=== PATIENT | female | born 1970 | race Two or more races ===

== ENCOUNTER 2016-10-17 04:27 | Emergency (ER) | payer MEDICAID ==
[2016-10-17 04:41] VITALS: BP 107/73
[2016-10-17] MEDS ORDERED: Albuterol/Ipratropium 3.0-0.5 MG/3 ML Neb Soln NEB ONE (04:57)
--- NOTE | 2016-10-17 05:03 | EDM.PDOC ---
ED HPI GENERAL MEDICAL PROBLEM - General Chief Complaint: Respiratory Problem Stated Complaint: COUGH CONGESTION Time Seen by Provider: 10/17/16 04:50 Source of Information: Reports: Patient History Limitations: Reports: No Limitations - History of Present Illness INITIAL COMMENTS - FREE TEXT/NARRATIVE: The patient presents with cough, congestion, fever, chills, sore throat, runny nose, and wheezing. She has a history of asthma. She has been using her inhaler's more often. She has some tightness in her chest and shortness of breath. She is coughing up some sputum at times. She does smoke. Onset: Gradual Duration: Week(s): (1) Location: Reports: Chest Quality: Reports: Other (Tightness) Improves with: Reports: None Worsens with: Reports: None Associated Symptoms: Reports: Chest Pain, Cough, cough w sputum, Fever/Chills, Shortness of Breath. Denies: Nausea/Vomiting Headache Pain Score (Numeric/FACES): 8 - Related Data Allergies Allergy/AdvReac Type Severity Reaction Status Date / Time Penicillins Allergy Severe Swelling Verified 10/17/16 04:36 grass pollen Allergy Cannot Verified 10/17/16 04:36 Remember latex Allergy Itching Verified 10/17/16 04:36 tree and shrub pollen Allergy Cannot Verified 10/17/16 04:36 Remember Home Meds: Home Meds Fluticasone/Salmeterol [Advair HFA 230-21 MCG] 2 puff INH Q12H 11/09/14 [History ] Omeprazole 40 mg PO DAILY 11/09/14 [History] Lisinopril 2.5 mg PO DAILY #90 tablet 05/21/15 [Rx] Metoprolol Tartrate [Lopressor] 25 mg PO BID #180 tablet 05/21/15 [Rx] Pyridoxine HCl [Vitamin B-6] 200 mg PO DAILY 01/18/16 [History] Ascorbic Acid [Vitamin C] 1 tab PO DAILY 05/07/16 [History] B&C/FA/Zinc/Copper Oxide/Vit E [Stress B-Complex Tablet] 1 tab PO DAILY [History] Metoclopramide [Reglan] 5 mg PO QIDACANDBED 05/07/16 [History] Resver/Wine/Bfl/Grpsd/Pc/C/Pom [Red Wine Extract] 1 cap PO DAILY 05/07/16 [ History] Simvastatin [Simvastatin] 80 mg PO BEDTIME 05/07/16 [History] traMADol HCl [Tramadol HCl] 1 tab PO Q4HR PRN 05/07/16 [History] Albuterol [IJD: Ventolin HFA] 2 puff INH ASDIRECTED PRN 10/17/16 [History] Azithromycin [IJD: Azithromycin] 250 mg PO DAILY #6 tab 10/17/16 [Rx] Codeine/Promethazine [Phenergan with Codeine] 5 - 10 ml PO Q4H PRN 10/17/16 [ History] Codeine/Promethazine [Phenergan with Codeine] 5 - 10 ml PO Q6HR PRN #300 ml [Rx] Multivitamin [Multivitamins] 1 tab PO DAILY 10/17/16 [History] Prednisone [IJD: predniSONE] 40 mg PO WITHBREAKFAST #10 tab 10/17/16 [Rx] Past Medical History HEENT History: Reports: Allergic Rhinitis, Sinusitis, Other (See Below) Other HEENT History: eustachian tube dysfunction Cardiovascular History: Reports: Heart Failure, High Cholesterol, Hypertension, [place], Pacemaker, Other (See Below) Other Cardiovascular History: Double bypass Respiratory History: Reports: Asthma Gastrointestinal History: Reports: Hemorrhoids Other Gastrointestinal History: RECTAL BLEEDING from hemorrhoids Genitourinary History: Reports: Other (See Below) Other Genitourinary History: hematuria, labial cyst, vaginal cyst, dysuria, trichamoniasis [employer] History: Reports: Other OB/BYN History: HX OF X4, 2 VAGINAL BIRTHS, 2 MISSED SAB Musculoskeletal History: Reports: Fracture Other Musculoskeletal History: bilateral achilles tendon contracture, bilateral carpal tunnel, fibrosis of subtabular joint, R ankle sprain, cervix stenosis, R trapezius muscle, body aches, R distal radius fracture, R epicondylitis, rhabdomylosis Neurological History: Reports: Other (See Below) Other Neuro History: dizziness, fatigue Psychiatric History: Reports: Depression Endocrine/Metabolic History: Reports: Obesity/BMI 30+ Hematologic History: Reports: Blood Transfusion(s) Oncologic (Cancer) History: Reports: Cervix - Infectious Disease History Infectious Disease History: Reports: Chicken Pox - Past Surgical History HEENT Surgical History: Reports: Other (See Below) Cardiovascular Surgical History: Reports: Coronary Artery Bypass, Pacer Social & Family History - Family History HEENT: Reports: Cataract Cardiac: Reports: [place] Respiratory: Reports: Asthma : Reports: Renal Calculus OBGYN: Reports: , Other (See Below) Other OBGYN Family History: miscarriages Musculoskeletal: Reports: Back pain, Chronic Neurological: Reports: Migraines, Seizure Psychiatric: Reports: Anxiety, Depression, Schizophrenia Endocrine/Metabolic: Reports: Diabetes, Type I, Diabetes, type II, Other (See Below) Other Endocrine/Metabolic Family History: thyroid issues but unsure of what type Oncologic: Reports: Colon - Tobacco Use Smoking Status *Q: Current Every Day Smoker Years of Tobacco use: 30 Packs/Tins Daily: 0.3 Used Tobacco, but Quit: Yes Month Tobacco Last Used: December 2015 Second Hand Smoke Exposure: Yes - Alcohol Use Days Per Week of Alcohol Use: 0 Number of Drinks Per Day: 0 Total Drinks Per Week: 0 - Recreational Drug Use Recreational Drug Use: No Drug Use in Last 12 Months: No - Living Situation & Occupation Living situation: Reports: Single, Alone Occupation: Employed ED ROS GENERAL - Review of Systems Review Of Systems: See Below Constitutional: Reports: Fever, Chills HEENT: Reports: No Symptoms Respiratory: Reports: Shortness of Breath, Wheezing, Cough, Sputum Cardiovascular: Reports: Chest Pain Endocrine: Reports: No Symptoms GI/Abdominal: Reports: No Symptoms : Reports: No Symptoms Musculoskeletal: Reports: No Symptoms Skin: Reports: No Symptoms ED EXAM, GENERAL - Physical Exam Exam: See Below Exam Limited By: No Limitations General Appearance: Alert, No Apparent Distress Ears: Normal External Exam Nose: Normal Inspection Throat/Mouth: Normal Inspection Head: Atraumatic, Normocephalic Neck: Normal Inspection Respiratory/Chest: No Respiratory Distress, Wheezing (Moderate) Cardiovascular: Regular Rate, Rhythm, No Edema, No Murmur GI/Abdominal: Soft, Non-Tender, No Organomegaly, No Mass Back Exam: Normal Inspection Extremities: Normal Inspection Neurological: Alert, Oriented, No Motor/Sensory Deficits Course - Vital Signs Last Recorded V/S: Last Vital Signs Temp 97.8 F 10/17/16 04:40 Pulse 76 10/17/16 05:07 Resp 18 10/17/16 04:40 BP 107/73 10/17/16 04:40 Pulse Ox 93 L 10/17/16 04:40 - Orders/Labs/Meds Orders: Active Orders 24 hr Category Date Time Status RT Aerosol Therapy [RC] ASDIRECTED Care 10/17/16 04:57 Active CXR [Chest 2V] [CR] Stat Exams 10/17/16 04:58 Taken Meds: Medications Discontinued Medications Generic Name Dose Route Start Last Admin Trade Name Freq PRN Reason Stop Dose Admin Albuterol/Ipratropium 3 ml 10/17/16 04:57 10/17/16 05:06 Duoneb 3.0-0.5 Mg/3 Ml NEB 10/17/16 04:58 3 ml ONETIME ONE Administration - Re-Assessments/Exams Free Text/Narrative Re-Assessment/Exam: 10/17/16 05:03 I ordered a duo neb and a CXR. 10/17/16 05:38 Her CXR does not show any pneumonia. She has some bronchitis. I will her her on some zithromax and some prednisone for the breathing. She has some inhalers at home. Departure - Departure Time of Disposition: 05:40 Disposition: Home, Self-Care 01 Condition: good Clinical Impression: Acute bronchitis Qualifiers: Bronchitis organism: unspecified organism Qualified Code(s): J20.9 - Acute bronchitis, unspecified Acute asthma exacerbation Qualifiers: Asthma severity: mild intermittent Qualified Code(s): J45.21 - Mild intermittent asthma with (acute) exacerbation - Discharge Information Prescriptions: Codeine/Promethazine [Phenergan with Codeine] 5 - 10 ml PO Q6HR PRN #300 ml PRN Reason: Cough Azithromycin [IJD: Azithromycin] 250 mg PO DAILY #6 tab Prednisone [IJD: predniSONE] 40 mg PO WITHBREAKFAST #10 tab Referrals: Gladis García PA-C [Primary Care Provider] - Forms: ED Department Discharge, Return to Work/School Form Additional Instructions: Take the medication as prescribed and use your inhaler 2 puffs every 4 to 6 hours as needed for wheezing and shortness of breath. Please return if you are worse. - My Orders Last 24 Hours: My Active Orders 10/17/16 04:57 RT Aerosol Therapy [RC] ASDIRECTED 10/17/16 04:58 CXR [Chest 2V] [CR] Stat - Assessment/Plan Last 24 Hours: My Active Orders 10/17/16 04:57 RT Aerosol Therapy [RC] ASDIRECTED 10/17/16 04:58 CXR [Chest 2V] [CR] Stat
--- NOTE | 2016-10-17 11:28 | CR ---
Chest: Two views of the chest were obtained. Comparison: Previous chest x-ray of 05/03/16. Heart size and mediastinum are normal. Lungs are clear. AICD is noted. Sternotomy wires are seen for CABG. Impression: 1. Incidental findings. Nothing acute is identified on two-view chest x-ray. Diagnostic code #2
== END 2016-10-17 06:02 | disposition home or self-care (01) ==
LOC: JD.ED 04:27
DX: J45.21 Mild intermittent asthma with (acute) exacerbation (principal); E11.9 Type 2 diabetes mellitus without complications; I25.2 Old myocardial infarction; G89.29 Other chronic pain; F17.200 Nicotine dependence, unspecified, uncomplicated
CPT/HCPCS: 71020; 71020-26; 94664; 99284; 99284-25

== ENCOUNTER 2017-04-15 10:48 | Emergency (ER) | payer MEDICAID ==
[2017-04-15 10:57] VITALS: BP 106/68
[2017-04-15] MEDS ORDERED: Aspirin 81 MG Tab.Chew PO ONE (11:13)
[2017-04-15] MEDS ORDERED: Sodium Chloride 0.9% 10 ML Syringe FLUSH PRN (11:17)
--- NOTE | 2017-04-15 12:59 | EDM.PDOC ---
ED HPI GENERAL MEDICAL PROBLEM - General Chief Complaint: Chest Pain Stated Complaint: CHEST PAIN Time Seen by Provider: 04/15/17 10:57 Source of Information: Reports: Patient, RN Notes Reviewed - History of Present Illness INITIAL COMMENTS - FREE TEXT/NARRATIVE: 46 show female comes in experiencing intermittent chest pains for about the past 2 weeks. She describes these as sharp, shooting discomfort left lower chest which became somewhat more frequent and severe during the night and this morning. They're very brief lasting less than a minute. No discomfort at time of my exam. She has had some intermittent mild dizziness. No nausea vomiting. She does not feel short of breath. She does have history of coronary artery disease with history of bypass surgery 19 years ago. She does smoke but is trying to "cut back". She has been having some mild upper abdominal discomfort as well recently. No significant diarrhea. Left Chest Pain Score (Numeric/FACES): 8 - Related Data Allergies Allergy/AdvReac Type Severity Reaction Status Date / Time Penicillins Allergy Severe Swelling Verified 04/15/17 10:57 grass pollen Allergy Cannot Verified 04/15/17 10:57 Remember latex Allergy Itching Verified 04/15/17 10:57 tree and shrub pollen Allergy Cannot Verified 04/15/17 10:57 Remember Home Meds: Home Meds Lisinopril 2.5 mg PO DAILY #90 tablet 05/21/15 [Rx] Metoprolol Tartrate [Lopressor] 25 mg PO BID #180 tablet 05/21/15 [Rx] Simvastatin [Simvastatin] 40 mg PO BEDTIME 05/07/16 [History] Aspirin [Halfprin] 81 mg PO DAILY 04/15/17 [History] Hydrocodone/Acetaminophen [Hydrocodon-Acetaminophen 5-325] 1 each PO Q6H [History] Metoclopramide [Reglan] 5 mg PO QIDACANDBED 04/15/17 [History] Nabumetone 500 mg PO BID 04/15/17 [History] Oxybutynin [Oxybutynin ER] 5 mg PO DAILY 04/15/17 [History] Spironolactone [Aldactone] 12.5 mg PO DAILY 04/15/17 [History] Past Medical History HEENT History: Reports: Allergic Rhinitis, Sinusitis, Other (See Below) Other HEENT History: eustachian tube dysfunction Cardiovascular History: Reports: Heart Failure, High Cholesterol, Hypertension, [place], Pacemaker, Other (See Below) Other Cardiovascular History: Double bypass Respiratory History: Reports: Asthma Gastrointestinal History: Reports: Hemorrhoids Other Gastrointestinal History: RECTAL BLEEDING from hemorrhoids Genitourinary History: Reports: Other (See Below) Other Genitourinary History: hematuria, labial cyst, vaginal cyst, dysuria, trichamoniasis CHARRER History: Reports: Other OB/BYN History: HX OF X4, 2 VAGINAL BIRTHS, 2 MISSED SAB Musculoskeletal History: Reports: Fracture Other Musculoskeletal History: bilateral achilles tendon contracture, bilateral carpal tunnel, fibrosis of subtabular joint, R ankle sprain, cervix stenosis, R trapezius muscle, body aches, R distal radius fracture, R epicondylitis, rhabdomylosis Neurological History: Reports: Other (See Below) Other Neuro History: dizziness, fatigue Psychiatric History: Reports: Depression Endocrine/Metabolic History: Reports: Obesity/BMI 30+ Hematologic History: Reports: Blood Transfusion(s) Oncologic (Cancer) History: Reports: Cervix - Infectious Disease History Infectious Disease History: Reports: Chicken Pox - Past Surgical History HEENT Surgical History: Reports: Other (See Below) Cardiovascular Surgical History: Reports: Coronary Artery Bypass, Pacer Social & Family History - Family History HEENT: Reports: Cataract Cardiac: Reports: [place] Respiratory: Reports: Asthma : Reports: Renal Calculus OBGYN: Reports: , Other (See Below) Other OBGYN Family History: miscarriages Musculoskeletal: Reports: Back pain, Chronic Neurological: Reports: Migraines, Seizure Psychiatric: Reports: Anxiety, Depression, Schizophrenia Endocrine/Metabolic: Reports: Diabetes, Type I, Diabetes, type II, Other (See Below) Other Endocrine/Metabolic Family History: thyroid issues but unsure of what type Oncologic: Reports: Colon - Tobacco Use Smoking Status *Q: Current Every Day Smoker Years of Tobacco use: 30 Packs/Tins Daily: 0.5 Used Tobacco, but Quit: Yes Month Tobacco Last Used: December 2015 Second Hand Smoke Exposure: Yes - Alcohol Use Days Per Week of Alcohol Use: 0 Number of Drinks Per Day: 0 Total Drinks Per Week: 0 - Recreational Drug Use Recreational Drug Use: No Drug Use in Last 12 Months: No - Living Situation & Occupation Living situation: Reports: Single, Alone Occupation: Employed ED ROS GENERAL - Review of Systems Review Of Systems: See Below Constitutional: Reports: Diaphoresis (Very mild this morning, gone). Denies: Fever, Chills HEENT: Denies: Throat Pain, Vision Change Respiratory: Denies: Shortness of Breath, Wheezing, Pleuritic Chest Pain Cardiovascular: Reports: Chest Pain (Gone), Lightheadedness (Occasional). Denies: Syncope GI/Abdominal: Reports: Abdominal Pain (Upper abdominal for the past week or so, intermittent), Nausea (Occasional). Denies: Diarrhea, Vomiting Musculoskeletal: Denies: Neck Pain, Shoulder Pain, Arm Pain Skin: Reports: No Symptoms Neurological: Denies: Numbness, Tingling, Trouble Speaking, Difficulty Walking, Weakness ED EXAM, GENERAL - Physical Exam Exam: See Below General Appearance: Alert, No Apparent Distress Eye Exam: Bilateral Eye: PERRL Throat/Mouth: Normal Inspection, Normal Oropharynx Head: No: Facial Swelling Neck: Supple, Full Range of Motion Respiratory/Chest: No Respiratory Distress, Lungs Clear, Normal Breath Sounds. No: Rales, Rhonchi Cardiovascular: Regular Rate, Rhythm GI/Abdominal: Soft, Tender. No: Guarding, Rebound (Mild tenderness upper mid abdomen) Back Exam: No: CVA Tenderness (L), CVA Tenderness (R) Extremities: Normal Inspection. No: Pedal Edema, Leg Pain Neurological: Alert, Oriented, No Motor/Sensory Deficits Skin Exam: Warm, Dry, Normal Color EKG INTERPRETATION EKG Date: 04/15/17 Rhythm: NSR [place]: Normal P-Wave: Present QRS: Normal ST-T: Other (There is T-wave inversion anteriorly and aVL) Course - Vital Signs Last Recorded V/S: Last Vital Signs Temp 96.9 F 04/15/17 10:50 Pulse 83 04/15/17 10:50 Resp 16 04/15/17 10:50 BP 106/68 04/15/17 10:50 Pulse Ox 97 04/15/17 10:50 - Orders/Labs/Meds Orders: Active Orders 24 hr Category Date Time Status EKG Documentation Completion [RC] ASDIRECTED Care 04/15/17 11:14 Active Peripheral IV Care [RC] . DIRECTED Care 04/15/17 11:17 Active Chest 1V Frontal [CR] Stat Exams 04/15/17 12:51 Taken Sodium Chloride 0.9% [Saline Flush] Med 04/15/17 11:17 Active 10 ml FLUSH ASDIRECTED PRN Peripheral IV Insertion Adult [OM.PC] Stat Oth 04/15/17 11:17 Ordered EKG 12 Lead [EK] Stat Ther 04/15/17 11:14 Ordered Medication Orders Sodium Chloride (Saline Flush) 10 ml FLUSH ASDIRECTED PRN PRN Reason: Keep Vein Open Last Admin: 04/15/17 11:42 Dose: 10 ml Labs: Laboratory Tests 04/15/17 04/15/17 04/15/17 Range/Units 11:10 11:10 11:10 WBC 9.52 (3.98-10.04) K/mm3 RBC 4.96 (3.98-5.22) M/mm3 Hgb 15.3 (11.2-15.7) gm/L Hct 44.9 (34.1-44.9) % MCV 90.5 (79.4-94.8) fl MCH 30.8 (25.6-32.2) pg MCHC 34.1 (32.2-35.5) g/dl RDW Std Deviation 45.2 (36.4-46.3) fL Plt Count 307 (182-369) K/mm3 MPV 8.5 L (9.4-12.3) fl Neut % (Auto) 65.9 (34.0-71.1) % Lymph % (Auto) 24.7 (19.3-51.7) % [place] % (Auto) 8.3 (4.7-12.5) % Eos % (Auto) 0.6 L (0.7-5.8) Baso % (Auto) 0.4 (0.1-1.2) % Neut # (Auto) 6.27 H (1.56-6.13) K/mm3 Lymph # (Auto) 2.35 (1.18-3.74) K/mm3 [place] # (Auto) 0.79 H (0.24-0.36) K/mm3 Eos # (Auto) 0.06 (0.04-0.36) K/mm3 Baso # (Auto) 0.04 (0.01-0.08) K/mm3 APTT 27 (22-36) SECONDS D-Dimer, Quantitative 0.61 H (0.19-0.59) mg/L Sodium 140 (136-145) mEq/L Potassium 3.5 (3.5-5.1) mEq/L Chloride 104 (98-107) mEq/L Carbon Dioxide 24 (21-32) mEq/L Anion Gap 15.5 H (5-15) BUN 10 (7-18) mg/dL Creatinine 0.7 (0.55-1.02) mg/dL Est Cr Clr Drug Dosing 72.13 mL/min Estimated GFR (MDRD) > 60 (>60) mL/min BUN/Creatinine Ratio 14.3 (14-18) Glucose 93 (74-106) mg/dL Calcium 8.8 (8.5-10.1) mg/dL Total Bilirubin 0.3 (0.2-1.0) mg/dL AST 12 L (15-37) U/L ALT 20 (14-59) U/L Alkaline Phosphatase 65 (46-116) U/L Troponin I 0.019 (0.00-0.056) ng/mL Total Protein 7.2 (6.4-8.2) g/dl Albumin 3.5 (3.4-5.0) g/dl Globulin 3.7 gm/dL Albumin/Globulin Ratio 1.0 (1-2) 04/15/17 Range/Units 13:30 WBC (3.98-10.04) K/mm3 RBC (3.98-5.22) M/mm3 Hgb (11.2-15.7) gm/L Hct (34.1-44.9) % MCV (79.4-94.8) fl MCH (25.6-32.2) pg MCHC (32.2-35.5) g/dl RDW Std Deviation (36.4-46.3) fL Plt Count (182-369) K/mm3 MPV (9.4-12.3) fl Neut % (Auto) (34.0-71.1) % Lymph % (Auto) (19.3-51.7) % [place] % (Auto) (4.7-12.5) % Eos % (Auto) (0.7-5.8) Baso % (Auto) (0.1-1.2) % Neut # (Auto) (1.56-6.13) K/mm3 Lymph # (Auto) (1.18-3.74) K/mm3 [place] # (Auto) (0.24-0.36) K/mm3 Eos # (Auto) (0.04-0.36) K/mm3 Baso # (Auto) (0.01-0.08) K/mm3 APTT (22-36) SECONDS D-Dimer, Quantitative (0.19-0.59) mg/L Sodium (136-145) mEq/L Potassium (3.5-5.1) mEq/L Chloride (98-107) mEq/L Carbon Dioxide (21-32) mEq/L Anion Gap (5-15) BUN (7-18) mg/dL Creatinine (0.55-1.02) mg/dL Est Cr Clr Drug Dosing mL/min Estimated GFR (MDRD) (>60) mL/min BUN/Creatinine Ratio (14-18) Glucose (74-106) mg/dL Calcium (8.5-10.1) mg/dL Total Bilirubin (0.2-1.0) mg/dL AST (15-37) U/L ALT (14-59) U/L Alkaline Phosphatase (46-116) U/L Troponin I < 0.017 (0.00-0.056) ng/mL Total Protein (6.4-8.2) g/dl Albumin (3.4-5.0) g/dl Globulin gm/dL Albumin/Globulin Ratio (1-2) Meds: Medications Generic Name Dose Route Start Last Admin Trade Name Freq PRN Reason Stop Dose Admin Sodium Chloride 10 ml 04/15/17 11:17 04/15/17 11:42 Saline Flush FLUSH 10 ml ASDIRECTED PRN Administration Keep Vein Open Discontinued Medications Generic Name Dose Route Start Last Admin Trade Name Freq PRN Reason Stop Dose Admin Aspirin 324 mg 04/15/17 11:13 04/15/17 11:17 Aspirin PO 04/15/17 11:14 324 mg ONETIME ONE Administration - Re-Assessments/Exams Free Text/Narrative Re-Assessment/Exam: 04/15/17 14:46. Initial troponins came back at 0.019. 2-1/2 hour to 3 hour troponin came back at 0.017. Other labs all relatively normal. Chest x-ray looked good. She's been resting comfortably pain-free, no ectopy. She does have an appointment at the clinic to see a [employer] Helper tomorrow. Discharge instructions as documented Departure - Departure Time of Disposition: 14:44 Disposition: Home, Self-Care 01 Condition: Fair Clinical Impression: Atypical chest pain Referrals: PCP,None [Primary Care Provider] - Forms: ED Department Discharge Additional Instructions: Rest, take aspirin daily and take other medications as previously prescribed, see [employer] Up Helper at [facility] tomorrow as planned, return to ED if symptoms worsening in any way. - My Orders Last 24 Hours: My Active Orders 04/15/17 11:14 EKG Documentation Completion [RC] ASDIRECTED EKG 12 Lead [EK] Stat 04/15/17 11:17 Peripheral IV Care [RC] . DIRECTED Sodium Chloride 0.9% [Saline Flush] 10 ml FLUSH ASDIRECTED PRN Peripheral IV Insertion Adult [OM.PC] Stat 04/15/17 12:51 Chest 1V Frontal [CR] Stat - Assessment/Plan Last 24 Hours: My Active Orders 04/15/17 11:14 EKG Documentation Completion [RC] ASDIRECTED EKG 12 Lead [EK] Stat 04/15/17 11:17 Peripheral IV Care [RC] . DIRECTED Sodium Chloride 0.9% [Saline Flush] 10 ml FLUSH ASDIRECTED PRN Peripheral IV Insertion Adult [OM.PC] Stat 04/15/17 12:51 Chest 1V Frontal [CR] Stat
--- NOTE | 2017-04-16 11:00 | CR ---
Chest: Portable view of the chest was obtained. Comparison: Prior chest x-ray of 10/17/16. Heart size and mediastinum are within normal limits. Sternotomy is noted for prior CABG. AICD is present. Lungs are clear. Bony structures are grossly intact. Impression: 1. Incidental findings. Nothing acute is identified on portable chest x-ray. Diagnostic code #2
== END 2017-04-15 14:57 | disposition home or self-care (01) ==
LOC: JD.ED 10:48
DX: R07.89 Other chest pain (principal); I11.0 Hypertensive heart disease with heart failure; I50.9 Heart failure, unspecified; F17.210 Nicotine dependence, cigarettes, uncomplicated; Z88.0 Allergy status to penicillin; Z91.040 Latex allergy status; Z79.899 Other long term (current) drug therapy; Z79.82 Long term (current) use of aspirin
CPT/HCPCS: 36415; 71010; 80053; 84484; 85025; 85379; 85730; 93005; 99285; A9270; J7050; 93010

== ENCOUNTER 2017-07-23 12:50 | Emergency (ER) | payer MEDICAID ==
[2017-07-23 13:02] VITALS: BP 124/80
--- NOTE | 2017-07-23 13:06 | EDM.PDOC ---
ED HPI GENERAL MEDICAL PROBLEM - General Chief Complaint: Respiratory Problem Stated Complaint: COUGH/TROUBLE BREATHING Time Seen by Provider: 07/23/17 13:01 Source of Information: Reports: Patient History Limitations: Reports: No Limitations - History of Present Illness INITIAL COMMENTS - FREE TEXT/NARRATIVE: The patient presents with productive cough, shortness of breath and chest tightness. This has been going on for about 2 weeks and it has gotten worse over the past couple of days. She smokes daily. She has a history of asthma. She has chills and a fever. She has some lower abdominal pain from the coughing. She also has some increase frequency with urination and she says her urine is orange. Onset: Gradual Duration: Week(s): (2) Location: Reports: Chest, Abdomen Quality: Reports: Other (Tightness) Severity: Mild Improves with: Reports: None Worsens with: Reports: Other (Coughing) Associated Symptoms: Reports: Chest Pain, Cough, Shortness of Breath. Denies: Nausea/Vomiting back and chest area Pain Score (Numeric/FACES): 5 - Related Data Allergies Allergy/AdvReac Type Severity Reaction Status Date / Time Penicillins Allergy Severe Swelling Verified 07/23/17 13:02 grass pollen Allergy Cannot Verified 07/23/17 13:02 Remember latex Allergy Itching Verified 07/23/17 13:02 tree and shrub pollen Allergy Cannot Verified 07/23/17 13:02 Remember Home Meds: Home Meds Lisinopril 2.5 mg PO DAILY #90 tablet 05/21/15 [Rx] Metoprolol Tartrate [Lopressor] 25 mg PO BID #180 tablet 05/21/15 [Rx] Simvastatin [Simvastatin] 40 mg PO BEDTIME 05/07/16 [History] Aspirin [Halfprin] 81 mg PO DAILY 04/15/17 [History] Metoclopramide [Reglan] 5 mg PO QIDACANDBED 04/15/17 [History] Nabumetone 500 mg PO BID 04/15/17 [History] Oxybutynin [Oxybutynin ER] 5 mg PO DAILY 04/15/17 [History] Spironolactone [Aldactone] 12.5 mg PO DAILY 04/15/17 [History] Albuterol Sulfate [Ventolin Hfa] 18 gm IH BID 07/23/17 [History] Albuterol [Proventil HFA] 2 puff INH Q4H PRN #1 inhaler 07/23/17 [Rx] Azithromycin [IJD: Azithromycin] 250 mg PO DAILY #6 tab 07/23/17 [Rx] Codeine/Promethazine [Phenergan with Codeine] 1 dose PO ASDIRECTED PRN 07/23/17 [History] Codeine/Promethazine [Phenergan with Codeine] 5 - 10 ml PO Q6HR PRN #240 ml [Rx] Multivitamin [Multivitamins] 1 each PO DAILY 07/23/17 [History] Past Medical History HEENT History: Reports: Allergic Rhinitis, Sinusitis, Other (See Below) Other HEENT History: eustachian tube dysfunction Cardiovascular History: Reports: Heart Failure, High Cholesterol, Hypertension, [place], Pacemaker, Other (See Below) Other Cardiovascular History: Double bypass Respiratory History: Reports: Asthma Gastrointestinal History: Reports: Hemorrhoids Other Gastrointestinal History: RECTAL BLEEDING from hemorrhoids Genitourinary History: Reports: Other (See Below) Other Genitourinary History: hematuria, labial cyst, vaginal cyst, dysuria, trichamoniasis CARDIAC NURSE History: Reports: Other OB/BYN History: HX OF X4, 2 VAGINAL BIRTHS, 2 MISSED SAB Musculoskeletal History: Reports: Fracture Other Musculoskeletal History: bilateral achilles tendon contracture, bilateral carpal tunnel, fibrosis of subtabular joint, R ankle sprain, cervix stenosis, R trapezius muscle, body aches, R distal radius fracture, R epicondylitis, rhabdomylosis Neurological History: Reports: Other (See Below) Other Neuro History: dizziness, fatigue Psychiatric History: Reports: Depression Endocrine/Metabolic History: Reports: Obesity/BMI 30+ Hematologic History: Reports: Blood Transfusion(s) Oncologic (Cancer) History: Reports: Cervix - Infectious Disease History Infectious Disease History: Reports: Chicken Pox - Past Surgical History HEENT Surgical History: Reports: Other (See Below) Cardiovascular Surgical History: Reports: Coronary Artery Bypass, Pacer Social & Family History - Family History HEENT: Reports: Cataract Cardiac: Reports: [place] Respiratory: Reports: Asthma : Reports: Renal Calculus OBGYN: Reports: , Other (See Below) Other OBGYN Family History: miscarriages Musculoskeletal: Reports: Back pain, Chronic Neurological: Reports: Migraines, Seizure Psychiatric: Reports: Anxiety, Depression, Schizophrenia Endocrine/Metabolic: Reports: Diabetes, Type I, Diabetes, type II, Other (See Below) Other Endocrine/Metabolic Family History: thyroid issues but unsure of what type Oncologic: Reports: Colon - Tobacco Use Smoking Status *Q: Current Every Day Smoker Years of Tobacco use: 30 Packs/Tins Daily: 0.5 Used Tobacco, but Quit: Yes Month Tobacco Last Used: December 2015 Second Hand Smoke Exposure: Yes - Alcohol Use Days Per Week of Alcohol Use: 0 Number of Drinks Per Day: 0 Total Drinks Per Week: 0 - Recreational Drug Use Recreational Drug Use: No Drug Use in Last 12 Months: No - Living Situation & Occupation Living situation: Reports: Single, Alone Occupation: Employed ED ROS GENERAL - Review of Systems Review Of Systems: See Below Constitutional: Reports: Fever, Chills HEENT: Reports: No Symptoms Respiratory: Reports: Shortness of Breath, Cough Cardiovascular: Reports: Chest Pain Endocrine: Reports: No Symptoms GI/Abdominal: Reports: No Symptoms : Reports: No Symptoms Musculoskeletal: Reports: No Symptoms Skin: Reports: No Symptoms ED EXAM, GENERAL - Physical Exam Exam: See Below Exam Limited By: No Limitations General Appearance: Alert, No Apparent Distress Ears: Normal External Exam Nose: Normal Inspection Throat/Mouth: Normal Inspection Head: Atraumatic, Normocephalic Neck: Normal Inspection Respiratory/Chest: No Respiratory Distress, Wheezing Cardiovascular: Regular Rate, Rhythm, No Edema, No Murmur GI/Abdominal: Soft, Non-Tender, No Organomegaly, No Mass Back Exam: Normal Inspection Extremities: Normal Inspection Course - Vital Signs Last Recorded V/S: Last Vital Signs Temp 97.1 F 07/23/17 12:58 Pulse 84 07/23/17 12:58 Resp 18 07/23/17 12:58 BP 124/80 07/23/17 12:58 Pulse Ox 98 07/23/17 13:34 - Orders/Labs/Meds Orders: Active Orders 24 hr Category Date Time Status Cardiac Monitoring [RC] . DIRECTED Care 07/23/17 13:15 Active EKG Documentation Completion [RC] STAT Care 07/23/17 13:16 Active Oxygen Therapy [RC] PRN Care 07/23/17 13:15 Active Peripheral IV Care [RC] . DIRECTED Care 07/23/17 13:16 Active RT Aerosol Therapy [RC] ASDIRECTED Care 07/23/17 13:18 Active Chest 1V Frontal [CR] Stat Exams 07/23/17 13:16 Taken INFLUENZA A+B AG SCREEN [RM] Stat Lab 07/23/17 13:17 Ordered UA W/MICROSCOPIC [URIN] Stat Lab 07/23/17 15:07 Ordered Sodium Chloride 0.9% [Saline Flush] Med 07/23/17 13:15 Active 10 ml FLUSH ASDIRECTED PRN Peripheral IV Insertion Adult [OM.PC] Stat Oth 07/23/17 13:15 Ordered Medication Orders Sodium Chloride (Saline Flush) 10 ml FLUSH ASDIRECTED PRN PRN Reason: Keep Vein Open Last Admin: 07/23/17 14:22 Dose: 10 ml Labs: Laboratory Tests 07/23/17 07/23/17 Range/Units 13:35 13:35 WBC 5.64 (3.98-10.04) K/mm3 RBC 4.79 (3.98-5.22) M/mm3 Hgb 14.8 (11.2-15.7) gm/L Hct 43.6 (34.1-44.9) % MCV 91.0 (79.4-94.8) fl MCH 30.9 (25.6-32.2) pg MCHC 33.9 (32.2-35.5) g/dl RDW Std Deviation 42.2 (36.4-46.3) fL Plt Count 271 (182-369) K/mm3 MPV 8.9 L (9.4-12.3) fl Neut % (Auto) 59.6 (34.0-71.1) % Lymph % (Auto) 20.7 (19.3-51.7) % [place] % (Auto) 16.7 H (4.7-12.5) % Eos % (Auto) 2.1 (0.7-5.8) Baso % (Auto) 0.7 (0.1-1.2) % Neut # (Auto) 3.36 (1.56-6.13) K/mm3 Lymph # (Auto) 1.17 L (1.18-3.74) K/mm3 [place] # (Auto) 0.94 H (0.24-0.36) K/mm3 Eos # (Auto) 0.12 (0.04-0.36) K/mm3 Baso # (Auto) 0.04 (0.01-0.08) K/mm3 Manual Slide Review Normal smear Sodium 139 (136-145) mEq/L Potassium 3.1 L (3.5-5.1) mEq/L Chloride 104 (98-107) mEq/L Carbon Dioxide 23 (21-32) mEq/L Anion Gap 15.1 H (5-15) BUN 6 L (7-18) mg/dL Creatinine 0.7 (0.55-1.02) mg/dL Est Cr Clr Drug Dosing 72.13 mL/min Estimated GFR (MDRD) > 60 (>60) mL/min BUN/Creatinine Ratio 8.6 L (14-18) Glucose 85 (74-106) mg/dL Calcium 8.8 (8.5-10.1) mg/dL Total Bilirubin 0.4 (0.2-1.0) mg/dL AST 19 (15-37) U/L ALT 24 (14-59) U/L Alkaline Phosphatase 68 (46-116) U/L Troponin I < 0.017 (0.00-0.056) ng/mL Total Protein 7.2 (6.4-8.2) g/dl Albumin 3.4 (3.4-5.0) g/dl Globulin 3.8 gm/dL Albumin/Globulin Ratio 0.9 L (1-2) Meds: Medications Generic Name Dose Route Start Last Admin Trade Name Freblaine PRN Reason Stop Dose Admin Sodium Chloride 10 ml 07/23/17 13:15 07/23/17 14:22 Saline Flush FLUSH 10 ml ASDIRECTED PRN Administration Keep Vein Open Discontinued Medications Generic Name Dose Route Start Last Admin Trade Name Freq PRN Reason Stop Dose Admin Albuterol/Ipratropium 3 ml 07/23/17 13:18 07/23/17 13:34 Duoneb 3.0-0.5 Mg/3 Ml NEB 07/23/17 13:19 3 ml ONETIME ONE Administration Methylprednisolone Sodium Succinate 125 mg 07/23/17 13:19 07/23/17 14:21 Solu-Medrol IVPUSH 07/23/17 13:20 125 mg ONETIME ONE Administration - Re-Assessments/Exams Free Text/Narrative Re-Assessment/Exam: 07/23/17 15:45 I ordered an IV saline lock, labs, CXR, duoneb and solu-medrol 125mg IV. She sounds better after the treatment. 07/23/17 15:46 Her CXR does not show an infiltrate. Her CBC looks good. Her K was low at 3.1. Her troponin was negative. Her EKG shows a NSR with no acute changes. She has bronchitis. I will get her on some zithromax, albuterol, and phenergan with codeine. Departure - Departure Time of Disposition: 15:50 Disposition: Home, Self-Care 01 Condition: Good Clinical Impression: Bronchitis - Discharge Information Prescriptions: Codeine/Promethazine [Phenergan with Codeine] 5 - 10 ml PO Q6HR PRN #240 ml PRN Reason: Cough Albuterol [Proventil HFA] 2 puff INH Q4H PRN #1 inhaler PRN Reason: Shortness Of Breath Azithromycin [IJD: Azithromycin] 250 mg PO DAILY #6 tab Referrals: Bryson Traore MD [Primary Care Provider] - 1 Week Forms: ED Department Discharge Additional Instructions: Take your medication as prescribed. Try to stop smoking. Drink plenty of fluids. Please return if you are worse. - My Orders Last 24 Hours: My Active Orders 07/23/17 13:15 Cardiac Monitoring [RC] . DIRECTED Oxygen Therapy [RC] PRN Sodium Chloride 0.9% [Saline Flush] 10 ml FLUSH ASDIRECTED PRN Peripheral IV Insertion Adult [OM.PC] Stat 07/23/17 13:16 EKG Documentation Completion [RC] STAT Peripheral IV Care [RC] . DIRECTED Chest 1V Frontal [CR] Stat 07/23/17 13:17 INFLUENZA A+B AG SCREEN [RM] Stat 07/23/17 13:18 RT Aerosol Therapy [RC] ASDIRECTED 07/23/17 15:07 UA W/MICROSCOPIC [URIN] Stat - Assessment/Plan Last 24 Hours: My Active Orders 07/23/17 13:15 Cardiac Monitoring [RC] . DIRECTED Oxygen Therapy [RC] PRN Sodium Chloride 0.9% [Saline Flush] 10 ml FLUSH ASDIRECTED PRN Peripheral IV Insertion Adult [OM.PC] Stat 07/23/17 13:16 EKG Documentation Completion [RC] STAT Peripheral IV Care [RC] . DIRECTED Chest 1V Frontal [CR] Stat 07/23/17 13:17 INFLUENZA A+B AG SCREEN [RM] Stat 07/23/17 13:18 RT Aerosol Therapy [RC] ASDIRECTED 07/23/17 15:07 UA W/MICROSCOPIC [URIN] Stat
[2017-07-23] MEDS ORDERED: Sodium Chloride 0.9% 10 ML Syringe FLUSH PRN (13:15)
[2017-07-23] MEDS ORDERED: Albuterol/Ipratropium 3.0-0.5 MG/3 ML Neb Soln NEB ONE (13:18)
[2017-07-23] MEDS ORDERED: methylPREDNISolone Sodium Succinate 125 MG/2 ML SDV IVPUSH ONE (13:19)
--- NOTE | 2017-07-24 08:49 | CR ---
Chest: Portable view of the chest was obtained. Comparison: Prior chest x-ray of 04/15/17. Heart size and mediastinum are normal. Lungs are clear. AICD is noted. Previous sternotomy is noted. Bony structures are grossly intact. Impression: 1. Nothing acute is appreciated on portable chest x-ray. Diagnostic code #2
== END 2017-07-23 16:05 | disposition home or self-care (01) ==
LOC: JD.ED 12:50
DX: J40 Bronchitis, not specified as acute or chronic (principal); I11.0 Hypertensive heart disease with heart failure; I50.9 Heart failure, unspecified; I25.2 Old myocardial infarction; E78.00 Pure hypercholesterolemia, unspecified; J45.909 Unspecified asthma, uncomplicated; E66.9 Obesity, unspecified; F17.210 Nicotine dependence, cigarettes, uncomplicated; Z88.0 Allergy status to penicillin; Z91.048 Other nonmedicinal substance allergy status; Z91.040 Latex allergy status; Z79.899 Other long term (current) drug therapy; Z79.82 Long term (current) use of aspirin
CPT/HCPCS: 36415; 71045; 80053; 84484; 85025; 93005; 94640; 96374; 99285; J2930; J7050; 99283

== ENCOUNTER 2018-01-26 15:54 | Emergency (ER) | payer OTHER ==
[2018-01-26 16:09] VITALS: BP 102/76
[2018-01-26] MEDS ORDERED: Ondansetron 4 MG/2 ML SDV IVPUSH ONE (16:52)
[2018-01-26] MEDS ORDERED: Sodium Chloride 0.9% 1,000 ML IV ONE (16:52)
[2018-01-26] MEDS ORDERED: Acetaminophen 325 MG Tab PO ONE (17:05)
--- NOTE | 2018-01-26 17:11 | EDM.PDOC ---
ED HPI GENERAL MEDICAL PROBLEM - General Chief Complaint: Abdominal Pain Stated Complaint: BACK PAIN/VOMITING Time Seen by Provider: 01/26/18 16:03 Source of Information: Reports: Patient History Limitations: Reports: No Limitations - History of Present Illness INITIAL COMMENTS - FREE TEXT/NARRATIVE: 47-year-old female with a reported past medical history of CABG and heart valve replacement presenting with a chief complaint nausea, dizziness and vomiting. The patient is a poor historian cannot recall exactly which are valve she's had replaced. She states that she had heart valve replacement and reportedly coronary artery bypass when she was 27 years old. She states this was due to stress from relationship with her first . More recently the patient has had nausea and vomiting for the past 3 months. There is no clear. Provoking factors. She has says it is associated with some intermittent dizziness as well. Patient however denies any associated chest pain. She last saw her primary care provider 3 months ago for some shortness of breath and was given a prescription for nebulized albuterol as well as metered-dose inhaler. More recently over the past few weeks patient has noticed some diffuse nonspecific abdominal pain which is crampy and intermittent. She states that she's been diagnosed with a kidney stone once in the past. Patient states she's been unable tolerate by mouth intake for the past day. She has no history of abdominal surgeries. Denies any diarrhea or constipation. Her emesis is nonbloody and nonbilious. Patient states she's had intermittent visual difficulties and sees floaters occasionally but again she can't identify any palliative or provoking factors and states that the episodes resolve within minutes. Yesterday while driving her son or if she had to stop several times throughout. Left Back Pain Score (Numeric/FACES): 8 - Related Data Allergies Allergy/AdvReac Type Severity Reaction Status Date / Time Penicillins Allergy Severe Swelling Verified 01/26/18 16:52 cat dander Allergy Shortness Verified 01/26/18 16:53 of Breath dog dander Allergy Shortness Verified 01/26/18 16:53 of Breath grass pollen Allergy Cannot Verified 01/26/18 16:52 Remember latex Allergy Itching Verified 01/26/18 16:52 tree and shrub pollen Allergy Cannot Verified 01/26/18 16:52 Remember Home Meds: Home Meds Lisinopril 2.5 mg PO DAILY #90 tablet 05/21/15 [Rx] Metoprolol Tartrate [Lopressor] 25 mg PO BID #180 tablet 05/21/15 [Rx] Simvastatin 40 mg PO BEDTIME 05/07/16 [History] Aspirin [Halfprin] 81 mg PO DAILY 04/15/17 [History] Metoclopramide [Reglan] 5 mg PO QIDACANDBED 04/15/17 [History] Nabumetone 500 mg PO BID 04/15/17 [History] Oxybutynin [Oxybutynin ER] 5 mg PO DAILY 04/15/17 [History] Spironolactone [Aldactone] 12.5 mg PO DAILY 04/15/17 [History] Meclizine [Antivert] 12.5 mg PO TID #15 tab 01/26/18 [Rx] Meclizine [Antivert] 12.5 mg PO TID #15 tab 01/26/18 [Rx] Past Medical History HEENT History: Reports: Allergic Rhinitis, Sinusitis, Other (See Below) Other HEENT History: eustachian tube dysfunction Cardiovascular History: Reports: Heart Failure, High Cholesterol, Hypertension, [place], Pacemaker, Other (See Below) Other Cardiovascular History: Double bypass Respiratory History: Reports: Asthma Gastrointestinal History: Reports: Hemorrhoids Other Gastrointestinal History: RECTAL BLEEDING from hemorrhoids Genitourinary History: Reports: Other (See Below) Other Genitourinary History: hematuria, labial cyst, vaginal cyst, dysuria, trichamoniasis INVESTIGATION LIEUTENANT History: Reports: Other INVESTIGATION LIEUTENANT History: HX OF X4, 2 VAGINAL BIRTHS, 2 MISSED SAB Musculoskeletal History: Reports: Fracture Other Musculoskeletal History: bilateral achilles tendon contracture, bilateral carpal tunnel, fibrosis of subtabular joint, R ankle sprain, cervix stenosis, R trapezius muscle, body aches, R distal radius fracture, R epicondylitis, rhabdomylosis Neurological History: Reports: Other (See Below) Other Neuro History: dizziness, fatigue Psychiatric History: Reports: Depression Endocrine/Metabolic History: Reports: Obesity/BMI 30+ Hematologic History: Reports: Blood Transfusion(s) Oncologic (Cancer) History: Reports: Cervix - Infectious Disease History Infectious Disease History: Reports: Chicken Pox, Other (See Below) Other Infectious Disease History: STD's--not sure which one. - Past Surgical History HEENT Surgical History: Reports: Other (See Below) Cardiovascular Surgical History: Reports: Coronary Artery Bypass, Pacer Social & Family History - Family History HEENT: Reports: Cataract Cardiac: Reports: [place] Respiratory: Reports: Asthma : Reports: Renal Calculus OBGYN: Reports: , Other (See Below) Other OBGYN Family History: miscarriages Musculoskeletal: Reports: Back pain, Chronic Neurological: Reports: Migraines, Seizure Psychiatric: Reports: Anxiety, Depression, Schizophrenia Endocrine/Metabolic: Reports: Diabetes, Type I, Diabetes, type II, Other (See Below) Other Endocrine/Metabolic Family History: thyroid issues but unsure of what type Oncologic: Reports: Colon - Tobacco Use Smoking Status *Q: Current Every Day Smoker Years of Tobacco use: 30 Packs/Tins Daily: 0.5 - Caffeine Use Caffeine Use: Reports: Coffee - Recreational Drug Use Recreational Drug Use: No - Living Situation & Occupation Living situation: Reports: Single, Alone Occupation: Employed ED ROS GENERAL - Review of Systems Review Of Systems: See Below Constitutional: Reports: Weakness HEENT: Reports: No Symptoms Respiratory: Reports: No Symptoms. Denies: Shortness of Breath, Wheezing, Cough Cardiovascular: Reports: No Symptoms. Denies: Chest Pain, Dyspnea on Exertion GI/Abdominal: Reports: Abdominal Pain, Nausea, Vomiting Musculoskeletal: Reports: No Symptoms Skin: Reports: No Symptoms ED EXAM, GI/ABD - Physical Exam Exam: See Below EKG INTERPRETATION EKG Date: 01/26/18 Time: 17:17 Rhythm: NSR Rate (Beats/Min): 92 [place]: Normal P-Wave: Present QRS: Normal ST-T: Normal QT: Normal (q waves a VL, V1-2- EVIDENCE OF OLD INFARCTION) EKG Interpretation Comments: Q waves noted in V1 and V2 V3 and aVL Course - Vital Signs Last Recorded V/S: Last Vital Signs Temp 36.4 C 01/26/18 16:00 Pulse 90 01/26/18 16:00 Resp 20 01/26/18 16:00 BP 102/76 01/26/18 16:00 Pulse Ox 94 L 01/26/18 16:00 - Orders/Labs/Meds Orders: Active Orders 24 hr Category Date Time Status EKG Documentation Completion [RC] STAT Care 01/26/18 17:09 Active UA W/MICROSCOPIC [URIN] Stat Lab 01/26/18 16:20 Ordered Labs: Laboratory Tests 01/26/18 01/26/18 01/26/18 Range/Units 16:20 16:45 16:45 WBC 13.37 H (3.98-10.04) K/mm3 RBC 5.01 (3.98-5.22) M/mm3 Hgb 15.1 (11.2-15.7) gm/L Hct 44.1 (34.1-44.9) % MCV 88.0 (79.4-94.8) fl MCH 30.1 (25.6-32.2) pg MCHC 34.2 (32.2-35.5) g/dl RDW Std Deviation 41.9 (36.4-46.3) fL Plt Count 346 (182-369) K/mm3 MPV 8.9 L (9.4-12.3) fl Neut % (Auto) 64.1 (34.0-71.1) % Lymph % (Auto) 24.7 (19.3-51.7) % [place] % (Auto) 9.9 (4.7-12.5) % Eos % (Auto) 1.0 (0.7-5.8) Baso % (Auto) 0.2 (0.1-1.2) % Neut # (Auto) 8.56 H (1.56-6.13) K/mm3 Lymph # (Auto) 3.30 (1.18-3.74) K/mm3 [place] # (Auto) 1.33 H (0.24-0.36) K/mm3 Eos # (Auto) 0.13 (0.04-0.36) K/mm3 Baso # (Auto) 0.03 (0.01-0.08) K/mm3 Sodium 140 (136-145) mEq/L Potassium 4.0 (3.5-5.1) mEq/L Chloride 105 (98-107) mEq/L Carbon Dioxide 26 (21-32) mEq/L Anion Gap 13.0 (5-15) BUN 9 (7-18) mg/dL Creatinine 0.9 (0.55-1.02) mg/dL Est Cr Clr Drug Dosing 55.51 mL/min Estimated GFR (MDRD) > 60 (>60) mL/min BUN/Creatinine Ratio 10.0 L (14-18) Glucose 105 (74-106) mg/dL Calcium 8.9 (8.5-10.1) mg/dL Total Bilirubin 0.3 (0.2-1.0) mg/dL AST 14 L (15-37) U/L ALT 26 (14-59) U/L Alkaline Phosphatase 70 (46-116) U/L Total Protein 7.1 (6.4-8.2) g/dl Albumin 3.4 (3.4-5.0) g/dl Globulin 3.7 gm/dL Albumin/Globulin Ratio 0.9 L (1-2) Lipase 134 (73-393) U/L Urine Color Yellow (Yellow) Urine Appearance Clear (Clear) Urine pH 7.0 (5.0-8.0) Ur Specific [place] 1.020 (1.005-1.030) Urine Protein Negative (Negative) Urine Glucose (UA) Negative (Negative) Urine Ketones Trace H (Negative) Urine Occult Blood Trace-intact H (Negative) Urine Nitrite Negative (Negative) Urine Bilirubin Negative (Negative) Urine Urobilinogen 1.0 (0.2-1.0) Ur Leukocyte Esterase Negative (Negative) Urine RBC 0-5 (0-5) /hpf Urine WBC 0-5 (0-5) /hpf Ur Epithelial Cells 5-10 H (0-5) /hpf Urine Bacteria Few (FEW) /hpf Urine Mucus Few (FEW) /hpf Meds: Medications Discontinued Medications Generic Name Dose Route Start Last Admin Trade Name Freq PRN Reason Stop Dose Admin Acetaminophen 975 mg 01/26/18 17:05 01/26/18 17:55 Tylenol PO 01/26/18 17:06 975 mg NOW ONE Administration Sodium Chloride 1,000 mls @ 999 mls/hr 01/26/18 16:52 01/26/18 17:28 Normal Saline IV 01/26/18 17:52 999 mls/hr ONETIME ONE Administration Ondansetron HCl 4 mg 01/26/18 16:52 01/26/18 17:05 Zofran IVPUSH 01/26/18 16:53 4 mg ONETIME ONE Administration - Re-Assessments/Exams Free Text/Narrative Re-Assessment/Exam: 01/26/18 17:09 47-year-old female past medical history of reported coronary artery bypass as well as heart valve replacement presenting with nonspecific complaints of intermittent nausea, dizziness vomiting and abdominal pain. On initial eval patient had normal vital signs. Abdominal exam notable for diffuse tenderness to palpation but no signs of peritonitis. Heart lung exam are unremarkable. Neurologic exam is nonfocal and intact. At this time plan is to obtain CBC, CMP EKG and she patient symptomatically with Tylenol normal saline and Zofran. Also obtain urinalysis. Due to the three-month time course of the patient's symptoms I have extremely low suspicion for any emergent life-threatening cause. EKG shows no acute signs of ischemia. There are some Q waves in the precordial leads which are consistent with her report of an old myocardial infarction. CBC was notable only for nonspecific leukocytosis. CMP notable for mild hyperglycemia but otherwise unremarkable. Urinalysis is not suggestive of kidney stone or infection. An extensive conversation with the patient regarding her symptoms. She is adamant and clear that the symptoms she has been experiencing are not consistent with her prior heart attack. She understands that were deep sheet to experience symptoms similar to that that she would need a stress test as her last stress test was over a year ago. Patient thinks this is not her heart. I told the patient that her description of the dizziness as room spinning around or could be consistent with vertigo. Therefore plan is to treat empirically with meclizine as an outpatient and have the patient follow closely with her primary care physician. She was given strict return precautions for any new or worsening chest pain, shortness of breath and lightheadedness dizziness headache or visual changes. 01/26/18 21:17 Departure - Departure Time of Disposition: 19:58 Disposition: Home, Self-Care 01 Condition: Good Clinical Impression: Vertigo - Discharge Information *PRESCRIPTION DRUG MONITORING PROGRAM REVIEWED*: No *COPY OF PRESCRIPTION DRUG MONITORING REPORT IN PATIENT HANK: No Prescriptions: Meclizine [Antivert] 12.5 mg PO TID #15 tab Meclizine [Antivert] 12.5 mg PO TID #15 tab Instructions: Vertigo, Aced-cw-Oyir Referrals: PCP,None [Primary Care Provider] - Forms: ED Department Discharge Additional Instructions: You've been seen in the ED today for dizziness. At this time it is safe to go home. There does not appear to be a dangerous cause for your symptoms right now. You can try meclizine for the sensation of vertigo. If at any time you have symptoms similar to your last heart attack please return to the nearest ED. - My Orders Last 24 Hours: My Active Orders 01/26/18 16:20 UA W/MICROSCOPIC [URIN] Stat 01/26/18 17:09 EKG Documentation Completion [RC] STAT - Assessment/Plan Last 24 Hours: My Active Orders 01/26/18 16:20 UA W/MICROSCOPIC [URIN] Stat 01/26/18 17:09 EKG Documentation Completion [RC] STAT
== END 2018-01-26 20:10 | disposition home or self-care (01) ==
LOC: JD.ED 15:54
DX: R42 Dizziness and giddiness (principal); I11.0 Hypertensive heart disease with heart failure; I50.9 Heart failure, unspecified; I25.810 Atherosclerosis of coronary artery bypass graft(s) without angina pectoris; J45.909 Unspecified asthma, uncomplicated; Z88.0 Allergy status to penicillin; Z95.0 Presence of cardiac pacemaker; Z79.899 Other long term (current) drug therapy; F17.210 Nicotine dependence, cigarettes, uncomplicated
CPT/HCPCS: 36415; 80053; 81001; 83690; 85025; 93005; 96361; 96374; 99284; A9270; J2405; J7040

== ENCOUNTER 2018-11-04 21:41 | Emergency (ER) | payer MEDICAID, BC ==
[2018-11-04 21:54] VITALS: BP 107/44
--- NOTE | 2018-11-04 22:21 | EDM.PDOC ---
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 She's had this since 2014 and it's gone off once in the past. She was at work at [employer] when the device started to make a abnormal sounds similar to the sirens in [place].--jeanette etc,. This lasted for less than 5 seconds. She did not feel unwell at the time. She came to the ED to make sure that nothing was wrong. She did use the interrogation device when she went home and it is to be sent to the hospital once interrogation report is available. She has no recent changes to her medications. Onset: Today Onset Date: 11/04/18 Onset Time: 20:40 Duration: Minutes: (Her ADC was making a abnormal noise for about 3-5 seconds while she was in the workplace. As far she knows she was exposed to any magnetic source.) Location: Reports: Other (Implanted a ID he making abnormal noises.) Severity: Mild Improves with: Reports: Other Worsens with: Reports: None (Improves spontaneously) Context: Reports: Other. 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 below) (No changes to medications recently and she took nothing different today.) - Related Data Allergies Allergy/AdvReac Type Severity Reaction Status Date / Time Penicillins Allergy Severe Swelling Verified 03/20/18 23:23 cat dander Allergy Shortness Verified 03/20/18 23:23 of Breath dog dander Allergy Shortness Verified 03/20/18 23:23 of Breath grass pollen Allergy Cannot Verified 03/20/18 23:23 Remember latex Allergy Itching Verified 03/20/18 23:23 tree and shrub pollen Allergy Cannot Verified 03/20/18 23:23 Remember Home Meds: Home Meds Lisinopril 2.5 mg PO DAILY #90 tablet 05/21/15 [Rx] Aspirin [Halfprin] 81 mg PO DAILY 04/15/17 [History] Metoclopramide [Reglan] 5 mg PO QIDACANDBED 04/15/17 [History] Spironolactone [Aldactone] 12.5 mg PO DAILY 04/15/17 [History] Rosuvastatin [Crestor] 20 mg PO BEDTIME 03/20/18 [History] Solifenacin [Vesicare] 5 mg PO DAILY 03/20/18 [History] buPROPion HCl [Wellbutrin Xl] 150 mg PO DAILY 03/20/18 [History] Albuterol [Proventil HFA] 1 puff INH ASDIRECTED 11/04/18 [History] Past Medical History HEENT History: Reports: Allergic Rhinitis Other HEENT History: eustachian tube dysfunction Cardiovascular History: Reports: CAD, Heart Failure, High Cholesterol, Hypertension, [place], Stents (Patient had a stent placed at the time of myocardial infarctions at age 26 but it subsequently collapsed and she required immediate open heart surgery with double bypass performed at that time. Her ejection fraction was only 20% in 2014 and therefore I twice a day see was placed due to recurrent bouts of ventricular tachycardia. She states the device has gone off once shortly after was implanted. She states recent echo shows near return to normal ejection fraction.) Other Cardiovascular History: Double bypass Respiratory History: Reports: Asthma Gastrointestinal History: Reports: Gastritis, GERD, Hemorrhoids Other Gastrointestinal History: RECTAL BLEEDING from hemorrhoids Genitourinary History: Reports: Renal Calculus, Urinary Incontinence Other Genitourinary History: hematuria, labial cyst, vaginal cyst, dysuria, trichamoniasis MILLER FIRST History: Reports: , Spontaneous Other MILLER FIRST History: HX OF X4, 2 VAGINAL BIRTHS, 2 MISSED SAB Musculoskeletal History: Reports: Fracture Other Musculoskeletal History: bilateral achilles tendon contracture, bilateral carpal tunnel, fibrosis of subtabular joint, R ankle sprain, cervix stenosis, R trapezius muscle, body aches, R distal radius fracture, R epicondylitis, rhabdomylosis Neurological History: Reports: Vertigo, Other (See Below) Other Neuro History: dizziness, fatigue Psychiatric History: Reports: Depression Endocrine/Metabolic History: Reports: Obesity/BMI 30+ Hematologic History: Reports: Blood Transfusion(s) Oncologic (Cancer) History: Reports: Cervix - Infectious Disease History Infectious Disease History: Reports: Chicken Pox, Other (See Below) Other Infectious Disease History: STD's--not sure which one. - Past Surgical History HEENT Surgical History: Reports: Oral Surgery Cardiovascular Surgical History: Reports: AICD, Coronary Artery Bypass, Coronary Artery Stent Musculoskeletal Surgical History: Reports: Carpal Tunnel Social & Family History - Family History HEENT: Reports: Cataract Cardiac: Reports: [place] Respiratory: Reports: Asthma : Reports: Renal Calculus OBGYN: Reports: , Other (See Below) Other OBGYN Family History: miscarriages Musculoskeletal: Reports: Back pain, Chronic Neurological: Reports: Migraines, Seizure Psychiatric: Reports: Anxiety, Depression, Schizophrenia Endocrine/Metabolic: Reports: Diabetes, Type I, Diabetes, type II, Other (See Below) Other Endocrine/Metabolic Family History: thyroid issues but unsure of what type Oncologic: Reports: Colon - Tobacco Use Smoking Status *Q: Former Smoker Used Tobacco, but Quit: Yes Month/Year Tobacco Last Used: 1 - Caffeine Use Caffeine Use: Reports: Coffee, Soda - Recreational Drug Use Recreational Drug Use: No - Living Situation & Occupation Living situation: Reports: Single, with Family (Son), Other (Roommates) Occupation: Employed ([employer], [employer]) ED ROS GENERAL - Review of Systems Review Of Systems: See Below Constitutional: Reports: No Symptoms HEENT: Reports: No Symptoms Respiratory: Reports: No Symptoms Cardiovascular: Reports: Blood Pressure Problem (Typically runs low due to her medications.), Dyspnea on Exertion. Denies: Chest Pain (Chronically), Claudication, Edema, Lightheadedness, Orthopnea Endocrine: Reports: Fatigue GI/Abdominal: Reports: No Symptoms : Reports: No Symptoms Musculoskeletal: Reports: No Symptoms Skin: Reports: No Symptoms Neurological: Reports: No Symptoms Psychiatric: Reports: No Symptoms Hematologic/Lymphatic: Reports: No Symptoms Immunologic: Reports: No Symptoms ED EXAM, GENERAL - Physical Exam Exam: See Below Exam Limited By: No Limitations General Appearance: Alert, WD/WN, Anxious, Mild Distress Eye Exam: Bilateral Eye: Normal Inspection Throat/Mouth: Normal Inspection, Normal Lips, Normal Teeth, Normal Oropharynx Neck: Normal Inspection, Supple, Non-Tender, Full Range of Motion. No: Lymphadenopathy (L), Lymphadenopathy (R) Respiratory/Chest: No Respiratory Distress, Lungs Clear, Normal Breath Sounds, No Accessory Muscle Use, Respiratory Distress Cardiovascular: Normal Peripheral Pulses, Regular Rate, Rhythm, No Edema, No Gallop, No Murmur (Mild tachypnea but sats are 99% at room air.), No Rub, Other (Well-healed midline sternotomy incision. A IDC left upper anterior chest.) Peripheral Pulses: 3+: Carotid (L), Carotid (R), Posterior Tibial (L), Posterior Tibial (R), Dorsalis Pedis (L), Dorsalis Pedis (R) GI/Abdominal: Normal Bowel Sounds, Soft, Non-Tender, No Organomegaly, No Abnormal Bruit, No Mass Course - Vital Signs Last Recorded V/S: Last Vital Signs Temp 36.2 C 11/04/18 21:53 Pulse 78 11/04/18 21:53 Resp 20 11/04/18 21:53 BP 107/44 L 11/04/18 21:53 Pulse Ox 99 11/04/18 21:53 - Radiology Interpretation Free Text/Narrative:: 48-year-old female presents the ED due to abnormal sounds coming from her implanted defibrillator well at work tonight. States this was a ambulance-like sound that occurs over and the [place]. It stopped within 3-5 seconds. She was at work when this occurred. She went home and in did interrogate her device and the report was sent to the ED. They did not identify any significant arrhythmias and the a IDC appears to be functioning normally as programmed. They indicate they usually able give a long beep like noise if it gets too close to a magnetic source. The [employer] person that I spoke to had no idea what would cause the CyberKnife noises. It appears most likely this was interference from some other electronic signals. Patient reassured and she will be discharged home without any investigations at this time. She will actually go back to work. Departure - Departure Time of Disposition: 22:21 Disposition: Home, Self-Care 01 Reason for Transfer *Q: Other Condition: Good Clinical Impression: Automatic implantable cardioverter-defibrillator problem Referrals: Bryson Traore MD [Primary Care Provider] - Forms: ED Department Discharge, ED Return to Work/School Form Additional Instructions: Evaluation in the emergency him tonight in regards to abnormal noises coming from your a IDC which is been implanted since 2014. Interrogation of the a IDC reveals no abnormal rhythms and nothing that we can identify to have cause the abnormal sounds to have occurred. Spoken with the [employer] labor union business representative and they believe that usually when his exposed a magnetic source she get a prolonged beep. They are unclear what interference was occurring but it could' ve been some form of communication signal or FM signal that may have caused the AIDC to exhibit abnormal sounds. For this time it is unclear what caused the abnormal sounds. However the interrogation revealed no abnormalities that are worrisome or that her heart was acting up enough to be of any concern. You're therefore cleared to return to work without any restrictions. If it happens again please call your bottom saw operator tomorrow to see if they have any idea what may have caused the problem.
== END 2018-11-04 22:36 | disposition home or self-care (01) ==
LOC: JD.ED 21:41
DX: T82.198A Other mechanical complication of other cardiac electronic device, initial encounter (principal); J45.909 Unspecified asthma, uncomplicated; I11.0 Hypertensive heart disease with heart failure; I50.9 Heart failure, unspecified; I25.2 Old myocardial infarction; Z95.5 Presence of coronary angioplasty implant and graft; Z87.891 Personal history of nicotine dependence; Z88.0 Allergy status to penicillin; Z88.8 Allergy status to other drugs, medicaments and biological substances; Z79.82 Long term (current) use of aspirin; Z79.899 Other long term (current) drug therapy
CPT/HCPCS: 99281; 99283

== ENCOUNTER 2019-04-07 10:26 | Emergency (ER) | payer BC, MEDICAID ==
[2019-04-07 10:40] VITALS: BP 106/70; PULSE 80
[2019-04-07] MEDS ORDERED: Sodium Chloride 0.9% 10 ML Syringe FLUSH PRN (11:00)
--- NOTE | 2019-04-07 11:03 | EDM.PDOC ---
ED HPI GENERAL MEDICAL PROBLEM - General Chief Complaint: Chest Pain Stated Complaint: CHEST PAIN Time Seen by Provider: 04/07/19 10:55 Source of Information: Reports: Patient History Limitations: Reports: No Limitations - History of Present Illness INITIAL COMMENTS - FREE TEXT/NARRATIVE: Patient's unfortunate 48-year-old female who presents emergency Department today with complaint of chest pain. Patient reports she was in her normal state of health until one week ago when she started having pressure-like chest pain after mopping in her back and in her left midaxillary line eighth rib. Versus pain is worse with movement or eating improves with rest does not alleviate. Patient reports the pain is intermittent episodes lasting anywhere from a minute to 3 minutes. She is not having any pain at this time. No nausea no vomiting no fever no chills no cough or congestion no meningismus is no hematochezia or melena. Patient does have history of CABG at 27, vision has last stress test 3 years ago done in [place] which she reports as "negative". Patient sees her PCP here in town Dr Traore Left Chest Pain Score (Numeric/FACES): 3 - Related Data Allergies Allergy/AdvReac Type Severity Reaction Status Date / Time Penicillins Allergy Severe Swelling Verified 04/07/19 10:36 cat dander Allergy Shortness Verified 04/07/19 10:36 of Breath dog dander Allergy Shortness Verified 04/07/19 10:36 of Breath grass pollen Allergy Cannot Verified 04/07/19 10:36 Remember latex Allergy Itching Verified 04/07/19 10:36 tree and shrub pollen Allergy Cannot Verified 04/07/19 10:36 Remember Home Meds: Home Meds Lisinopril 2.5 mg PO DAILY #90 tablet 05/21/15 [Rx] Aspirin [Halfprin] 81 mg PO DAILY 04/15/17 [History] Metoclopramide [Reglan] 5 mg PO QIDACANDBED 04/15/17 [History] Spironolactone [Aldactone] 12.5 mg PO DAILY 04/15/17 [History] Rosuvastatin [Crestor] 20 mg PO BEDTIME 03/20/18 [History] Solifenacin [Vesicare] 5 mg PO DAILY 03/20/18 [History] buPROPion HCl [Wellbutrin Xl] 150 mg PO DAILY 03/20/18 [History] Albuterol [Proventil HFA] 1 puff INH ASDIRECTED 11/04/18 [History] Past Medical History HEENT History: Reports: Allergic Rhinitis Other HEENT History: eustachian tube dysfunction Cardiovascular History: Reports: CAD, Heart Failure, High Cholesterol, Hypertension, [place], Stents (Patient had a stent placed at the time of myocardial infarctions at age 26 but it subsequently collapsed and she required immediate open heart surgery with double bypass performed at that time. Her ejection fraction was only 20% in 2014 and therefore I twice a day see was placed due to recurrent bouts of ventricular tachycardia. She states the device has gone off once shortly after was implanted. 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: HX OF X4, 2 VAGINAL BIRTHS, 2 MISSED SAB Musculoskeletal History: Reports: Fracture Other Musculoskeletal History: bilateral achilles tendon contracture, bilateral carpal tunnel, fibrosis of subtabular joint, R ankle sprain, cervix stenosis, R trapezius muscle, body aches, R distal radius fracture, R epicondylitis, rhabdomylosis Neurological History: Reports: Vertigo, Other (See Below) Other Neuro History: dizziness, fatigue Psychiatric History: Reports: Depression Endocrine/Metabolic History: Reports: Obesity/BMI 30+ Hematologic History: Reports: Blood Transfusion(s) Oncologic (Cancer) History: Reports: Cervix - Infectious Disease History Infectious Disease History: Reports: Chicken Pox, Other (See Below) Other Infectious Disease History: STD's--not sure which one. - Past Surgical History HEENT Surgical History: Reports: Oral Surgery Cardiovascular Surgical History: Reports: AICD, Coronary Artery Bypass, Coronary Artery Stent Musculoskeletal Surgical History: Reports: Carpal Tunnel Social & Family History - Family History HEENT: Reports: Cataract Cardiac: Reports: [place] Respiratory: Reports: Asthma : Reports: Renal Calculus OBGYN: Reports: , Other (See Below) Other OBGYN Family History: miscarriages Musculoskeletal: Reports: Back pain, Chronic Neurological: Reports: Migraines, Seizure Psychiatric: Reports: Anxiety, Depression, Schizophrenia Endocrine/Metabolic: Reports: Diabetes, Type I, Diabetes, type II, Other (See Below) Other Endocrine/Metabolic Family History: thyroid issues but unsure of what type Oncologic: Reports: Colon - Caffeine Use Caffeine Use: Reports: Coffee, Soda - Living Situation & Occupation Living situation: Reports: Single, with Family (Son), Other (Roommates) Occupation: Employed ([employer], [employer]) ED ROS GENERAL - Review of Systems Review Of Systems: See Below Constitutional: Reports: No Symptoms HEENT: Reports: No Symptoms Respiratory: Reports: No Symptoms Cardiovascular: Reports: Chest Pain. Denies: Dyspnea on Exertion, Edema Endocrine: Reports: No Symptoms GI/Abdominal: Reports: Abdominal Pain. Denies: Anorexia, Black Stool, Bloody Stool, Nausea, Vomiting : Reports: No Symptoms Musculoskeletal: Reports: No Symptoms Skin: Reports: No Symptoms Neurological: Reports: No Symptoms Psychiatric: Reports: No Symptoms Hematologic/Lymphatic: Reports: No Symptoms Immunologic: Reports: No Symptoms ED EXAM, GENERAL - Physical Exam Exam: See Below Exam Limited By: No Limitations General Appearance: Alert, WD/WN, Mild Distress, Obese Throat/Mouth: Normal Inspection, Normal Lips, Normal Teeth, Normal Gums, Normal Oropharynx, Normal Voice, No Airway Compromise Head: Atraumatic, Normocephalic Neck: Normal Inspection, Supple, Non-Tender, Full Range of Motion Respiratory/Chest: No Respiratory Distress, Lungs Clear, Normal Breath Sounds, No Accessory Muscle Use, Chest Non-Tender Cardiovascular: Normal Peripheral Pulses, Regular Rate, Rhythm, No Edema, No Gallop, No JVD, No Murmur, No Rub GI/Abdominal: Normal Bowel Sounds, Soft, Tender (Epigastric right upper quadrant pain positive King sign) Back Exam: Normal Inspection, Full Range of Motion, NT Extremities: Normal Inspection, Normal Range of Motion, Non-Tender, Normal Capillary Refill, No Pedal Edema Neurological: Alert, Oriented, CN II-XII Intact, Normal Cognition, Normal Gait, Normal Reflexes, No Motor/Sensory Deficits Skin Exam: Warm, Dry, Intact, Normal Color, No Rash Course - Vital Signs Last Recorded V/S: Last Vital Signs Temp 98.1 F 04/07/19 10:37 Pulse 80 04/07/19 10:37 Resp 18 04/07/19 10:37 BP 106/70 04/07/19 10:37 Pulse Ox 97 04/07/19 10:37 - Orders/Labs/Meds Orders: Active Orders 24 hr Category Date Time Status EKG Documentation Completion [RC] ASDIRECTED Care 04/07/19 10:56 Active Sodium Chloride 0.9% [Saline Flush] Med 04/07/19 11:00 Active 10 ml FLUSH ASDIRECTED PRN Saline Lock Insert [OM.PC] Stat Oth 04/07/19 11:00 Ordered EKG 12 Lead [EK] Stat Ther 04/07/19 10:55 Ordered Medication Orders Sodium Chloride (Saline Flush) 10 ml FLUSH ASDIRECTED PRN PRN Reason: Keep Vein Open Last Admin: 04/07/19 12:10 Dose: 10 ml Labs: Laboratory Tests 04/07/19 04/07/19 04/07/19 Range/Units 11:10 11:13 11:13 WBC 9.05 (3.98-10.04) K/mm3 RBC 4.90 (3.98-5.22) M/mm3 Hgb 14.9 (11.2-15.7) gm/dl Hct 44.0 (34.1-44.9) % MCV 89.8 (79.4-94.8) fl MCH 30.4 (25.6-32.2) pg MCHC 33.9 (32.2-35.5) g/dl RDW Std Deviation 43.4 (36.4-46.3) fL Plt Count 328 (182-369) K/mm3 MPV 8.7 L (9.4-12.3) fl Neut % (Auto) 60.4 (34.0-71.1) % Lymph % (Auto) 28.2 (19.3-51.7) % Woodward % (Auto) 9.5 (4.7-12.5) % Eos % (Auto) 1.4 (0.7-5.8) Baso % (Auto) 0.4 (0.1-1.2) % Neut # (Auto) 5.46 (1.56-6.13) K/mm3 Lymph # (Auto) 2.55 (1.18-3.74) K/mm3 Woodward # (Auto) 0.86 H (0.24-0.36) K/mm3 Eos # (Auto) 0.13 (0.04-0.36) K/mm3 Baso # (Auto) 0.04 (0.01-0.08) K/mm3 Sodium 142 (136-145) mEq/L Potassium 3.9 (3.5-5.1) mEq/L Chloride 109 H (98-107) mEq/L Carbon Dioxide 22 (21-32) mEq/L Anion Gap 14.9 (5-15) BUN 8 (7-18) mg/dL Creatinine 0.6 (0.55-1.02) mg/dL Est Cr Clr Drug Dosing 82.36 mL/min Estimated GFR (MDRD) > 60 (>60) mL/min BUN/Creatinine Ratio 13.3 L (14-18) Glucose 105 (74-106) mg/dL Calcium 8.8 (8.5-10.1) mg/dL Total Bilirubin 0.3 (0.2-1.0) mg/dL AST 11 L (15-37) U/L ALT 20 (14-59) U/L Alkaline Phosphatase 71 (46-116) U/L Troponin I < 0.017 (0.00-0.056) ng/mL Total Protein 7.2 (6.4-8.2) g/dl Albumin 3.4 (3.4-5.0) g/dl Globulin 3.8 gm/dL Albumin/Globulin Ratio 0.9 L (1-2) Lipase 121 (73-393) U/L HCG, Qual (NEGATIVE) Urine Color Light yellow (Yellow) Urine Appearance Clear (Clear) Urine pH 6.5 (5.0-8.0) Ur Specific [place] 1.010 (1.005-1.030) Urine Protein Negative (Negative) Urine Glucose (UA) Negative (Negative) Urine Ketones Negative (Negative) Urine Occult Blood 3+ H (Negative) Urine Nitrite Negative (Negative) Urine Bilirubin Negative (Negative) Urine Urobilinogen 0.2 (0.2-1.0) Ur Leukocyte Esterase Negative (Negative) Urine RBC 5-10 H (0-5) /hpf Urine WBC Not seen (0-5) /hpf Ur Epithelial Cells 0-5 (0-5) /hpf Urine Bacteria Not seen (FEW) /hpf Urine Mucus Not seen (FEW) /hpf 04/07/19 04/07/19 Range/Units 11:13 12:52 WBC (3.98-10.04) K/mm3 RBC (3.98-5.22) M/mm3 Hgb (11.2-15.7) gm/dl Hct (34.1-44.9) % MCV (79.4-94.8) fl MCH (25.6-32.2) pg MCHC (32.2-35.5) g/dl RDW Std Deviation (36.4-46.3) fL Plt Count (182-369) K/mm3 MPV (9.4-12.3) fl Neut % (Auto) (34.0-71.1) % Lymph % (Auto) (19.3-51.7) % Woodward % (Auto) (4.7-12.5) % Eos % (Auto) (0.7-5.8) Baso % (Auto) (0.1-1.2) % Neut # (Auto) (1.56-6.13) K/mm3 Lymph # (Auto) (1.18-3.74) K/mm3 Woodward # (Auto) (0.24-0.36) K/mm3 Eos # (Auto) (0.04-0.36) K/mm3 Baso # (Auto) (0.01-0.08) K/mm3 Sodium (136-145) mEq/L Potassium (3.5-5.1) mEq/L Chloride (98-107) mEq/L Carbon Dioxide (21-32) mEq/L Anion Gap (5-15) BUN (7-18) mg/dL Creatinine (0.55-1.02) mg/dL Est Cr Clr Drug Dosing mL/min Estimated GFR (MDRD) (>60) mL/min BUN/Creatinine Ratio (14-18) Glucose (74-106) mg/dL Calcium (8.5-10.1) mg/dL Total Bilirubin (0.2-1.0) mg/dL AST (15-37) U/L ALT (14-59) U/L Alkaline Phosphatase (46-116) U/L Troponin I < 0.017 (0.00-0.056) ng/mL Total Protein (6.4-8.2) g/dl Albumin (3.4-5.0) g/dl Globulin gm/dL Albumin/Globulin Ratio (1-2) Lipase (73-393) U/L HCG, Qual Negative (NEGATIVE) Urine Color (Yellow) Urine Appearance (Clear) Urine pH (5.0-8.0) Ur Specific [place] (1.005-1.030) Urine Protein (Negative) Urine Glucose (UA) (Negative) Urine Ketones (Negative) Urine Occult Blood (Negative) Urine Nitrite (Negative) Urine Bilirubin (Negative) Urine Urobilinogen (0.2-1.0) Ur Leukocyte Esterase (Negative) Urine RBC (0-5) /hpf Urine WBC (0-5) /hpf Ur Epithelial Cells (0-5) /hpf Urine Bacteria (FEW) /hpf Urine Mucus (FEW) /hpf Meds: Medications Generic Name Dose Route Start Last Admin Trade Name Freq PRN Reason Stop Dose Admin Sodium Chloride 10 ml 04/07/19 11:00 04/07/19 12:10 Saline Flush FLUSH 10 ml ASDIRECTED PRN Administration Keep Vein Open - Re-Assessments/Exams Free Text/Narrative Re-Assessment/Exam: 04/07/19 11:53 Chest x-ray interpreted by me in NAD Free Text/Narrative Re-Assessment/Exam: 04/07/19 13:41 Patient's second troponin is negative I suspect this episode of chest pain is not cardiac related however secondary to patient's high risk we will have patient follow up with her body mechanic and her PCP for follow-up next week 04/07/19 13:44 Departure - Departure Time of Disposition: 13:45 Disposition: Home, Self-Care 01 Condition: Good Clinical Impression: Atypical chest pain GERD (gastroesophageal reflux disease) Qualifiers: Esophagitis presence: without esophagitis Qualified Code(s): K21.9 - Gastro- esophageal reflux disease without esophagitis Referrals: Bryson Traore MD [Primary Care Provider] - Forms: ED Department Discharge Additional Instructions: Home, rest, follow-up with your body mechanic and PCP next week, Prilosec OTC daily for 1 month him a return as needed for worsening condition - My Orders Last 24 Hours: My Active Orders 04/07/19 10:55 EKG 12 Lead [EK] Stat 04/07/19 10:56 EKG Documentation Completion [RC] ASDIRECTED 04/07/19 11:00 Sodium Chloride 0.9% [Saline Flush] 10 ml FLUSH ASDIRECTED PRN Saline Lock Insert [OM.PC] Stat - Assessment/Plan Last 24 Hours: My Active Orders 04/07/19 10:55 EKG 12 Lead [EK] Stat 04/07/19 10:56 EKG Documentation Completion [RC] ASDIRECTED 04/07/19 11:00 Sodium Chloride 0.9% [Saline Flush] 10 ml FLUSH ASDIRECTED PRN Saline Lock Insert [OM.PC] Stat
--- NOTE | 2019-04-07 11:48 | CR ---
Chest: Two views of the chest were obtained. Comparison: Prior chest x-ray of 03/21/[address] chest study also of 03/21/18. Findings: Heart size and mediastinum are normal. AICD is present. Previous sternotomy is noted for CABG. Lungs are clear with no acute parenchymal change. Bony structures are within normal limits for the patient's age. Impression: 1. Nothing acute is seen on two-view chest x-ray. Diagnostic code #2
[2019-04-07] MEDS ORDERED: Morphine 4 MG/ML Syringe IVPUSH ONE (13:55)
== END 2019-04-07 13:55 | disposition home or self-care (01) ==
LOC: JD.ED 10:26
DX: R07.89 Other chest pain (principal); K21.9 Gastro-esophageal reflux disease without esophagitis; I11.0 Hypertensive heart disease with heart failure; I50.9 Heart failure, unspecified; I25.2 Old myocardial infarction; I25.10 Atherosclerotic heart disease of native coronary artery without angina pectoris; E78.00 Pure hypercholesterolemia, unspecified; J45.909 Unspecified asthma, uncomplicated; F32.9 Major depressive disorder, single episode, unspecified; E66.9 Obesity, unspecified; Z68.36 Body mass index [BMI] 36.0-36.9, adult; Z95.1 Presence of aortocoronary bypass graft; Z88.0 Allergy status to penicillin; Z91.040 Latex allergy status; Z91.048 Other nonmedicinal substance allergy status; Z79.82 Long term (current) use of aspirin; Z79.899 Other long term (current) drug therapy
CPT/HCPCS: 36415; 71046; 71046-26; 80053; 81001; 83690; 84484; 84703; 85025; 93005; 93010; 99283; 99285-25

== ENCOUNTER 2019-06-09 17:39 | Emergency (ER) | payer SELFPAY ==
[2019-06-09] MEDS ORDERED: Sodium Chloride 0.9% 10 ML Syringe FLUSH PRN (17:43)
--- NOTE | 2019-06-09 17:44 | EDM.PDOC ---
ED HPI GENERAL MEDICAL PROBLEM - General Chief Complaint: Chest Pain Stated Complaint: [facility] Time Seen by Provider: 06/09/19 17:40 Source of Information: Reports: Patient, RN Notes Reviewed - History of Present Illness INITIAL COMMENTS - FREE TEXT/NARRATIVE: 48 year old female has come in by ambulance for chest pain that started this afternoon a few hrs ago. She describes this as a tightness but also has had burning anterior chest today and on other occasions as well. She does have occasional nonprod. cough. No recent fever or chills. Hx of pacer and "previous [place]". No abd pain, N/V, dizziness or diaphoresis. She also is a week or more overdue for her normal menstrual period. States she is usually regular about every 4 weeks. No vag. bleeding or spotting. Chest Pain Score (Numeric/FACES): 5 - Related Data Allergies Allergy/AdvReac Type Severity Reaction Status Date / Time Penicillins Allergy Severe Swelling Verified 06/09/19 17:49 cat dander Allergy Shortness Verified 06/09/19 17:49 of Breath dog dander Allergy Shortness Verified 06/09/19 17:49 of Breath grass pollen Allergy Cannot Verified 06/09/19 17:49 Remember latex Allergy Itching Verified 06/09/19 17:49 tree and shrub pollen Allergy Cannot Verified 06/09/19 17:49 Remember Home Meds: Home Meds Lisinopril 2.5 mg PO DAILY #90 tablet 05/21/15 [Rx] Aspirin [Halfprin] 81 mg PO DAILY 04/15/17 [History] Metoclopramide [Reglan] 5 mg PO DAILY PRN 04/15/17 [History] Spironolactone [Aldactone] 12.5 mg PO DAILY 04/15/17 [History] Rosuvastatin [Crestor] 20 mg PO BEDTIME 03/20/18 [History] Solifenacin [Vesicare] 5 mg PO DAILY 03/20/18 [History] buPROPion HCl [Wellbutrin Xl] 150 mg PO DAILY 03/20/18 [History] Albuterol [Proventil HFA] 1 puff INH ASDIRECTED 11/04/18 [History] Albuterol [Proventil Neb Soln] 1 dose NEB DAILY PRN 06/09/19 [History] Past Medical History HEENT History: Reports: Allergic Rhinitis Other HEENT History: eustachian tube dysfunction Cardiovascular History: Reports: CAD, Heart Failure, High Cholesterol, Hypertension, [place], Stents (Patient had a stent placed at the time of myocardial infarctions at age 26 but it subsequently collapsed and she required immediate open heart surgery with double bypass performed at that time. Her ejection fraction was only 20% in 2014 and therefore I twice a day see was placed due to recurrent bouts of ventricular tachycardia. She states the device has gone off once shortly after was implanted. 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: HX OF X4, 2 VAGINAL BIRTHS, 2 MISSED SAB Musculoskeletal History: Reports: Fracture Other Musculoskeletal History: bilateral achilles tendon contracture, bilateral carpal tunnel, fibrosis of subtabular joint, R ankle sprain, cervix stenosis, R trapezius muscle, body aches, R distal radius fracture, R epicondylitis, rhabdomylosis Neurological History: Reports: Vertigo, Other (See Below) Other Neuro History: dizziness, fatigue Psychiatric History: Reports: Depression Endocrine/Metabolic History: Reports: Obesity/BMI 30+ Hematologic History: Reports: Blood Transfusion(s) Oncologic (Cancer) History: Reports: Cervix - Infectious Disease History Infectious Disease History: Reports: Chicken Pox, Other (See Below) Other Infectious Disease History: STD's--not sure which one. - Past Surgical History HEENT Surgical History: Reports: Oral Surgery Cardiovascular Surgical History: Reports: AICD, Coronary Artery Bypass, Coronary Artery Stent Musculoskeletal Surgical History: Reports: Carpal Tunnel Social & Family History - Family History HEENT: Reports: Cataract Cardiac: Reports: [place] Respiratory: Reports: Asthma : Reports: Renal Calculus OBGYN: Reports: , Other (See Below) Other OBGYN Family History: miscarriages Musculoskeletal: Reports: Back pain, Chronic Neurological: Reports: Migraines, Seizure Psychiatric: Reports: Anxiety, Depression, Schizophrenia Endocrine/Metabolic: Reports: Diabetes, Type I, Diabetes, type II, Other (See Below) Other Endocrine/Metabolic Family History: thyroid issues but unsure of what type Oncologic: Reports: Colon - Caffeine Use Caffeine Use: Reports: Coffee, Soda - Living Situation & Occupation Living situation: Reports: Single, with Family (Son), Other (Roommates) Occupation: Employed ([employer], [employer]) ED ROS GENERAL - Review of Systems Review Of Systems: See Below Constitutional: Denies: Fever, Chills, Diaphoresis HEENT: Denies: Throat Pain Respiratory: Reports: Cough. Denies: Shortness of Breath, Pleuritic Chest Pain , Sputum Cardiovascular: Reports: Chest Pain GI/Abdominal: Denies: Abdominal Pain, Nausea, Vomiting Musculoskeletal: Denies: Neck Pain, Shoulder Pain, Arm Pain Skin: Reports: No Symptoms Neurological: Denies: Dizziness, Numbness, Tingling, Trouble Speaking, Weakness ED EXAM, GENERAL - Physical Exam Exam: See Below General Appearance: Alert, No Apparent Distress Eye Exam: Bilateral Eye: PERRL Throat/Mouth: Normal Inspection, Normal Oropharynx Head: Atraumatic Neck: Supple Respiratory/Chest: No Respiratory Distress, Lungs Clear, Normal Breath Sounds, Chest Non-Tender Cardiovascular: Regular Rate, Rhythm GI/Abdominal: Soft, Non-Tender Extremities: No: Pedal Edema, Leg Pain, Increased Warmth Neurological: Alert, Oriented, No Motor/Sensory Deficits Skin Exam: Warm, Dry, Normal Color EKG INTERPRETATION EKG Date: 06/09/19 Rhythm: NSR [place]: Normal P-Wave: Present QRS: Other (Q waves V2 and V3) ST-T: Elevated (very slight st elevation V2 and V3) Course - Vital Signs Last Recorded V/S: Last Vital Signs Temp 97.7 F 06/09/19 17:44 Pulse 79 06/09/19 17:44 Resp 18 06/09/19 17:44 BP 101/69 06/09/19 17:44 Pulse Ox 97 06/09/19 17:44 - Orders/Labs/Meds Orders: Active Orders 24 hr Category Date Time Status EKG 12 Lead [EKG Documentation Completion] [RC] STAT Care 06/09/19 17:43 Active Peripheral IV Care [RC] . DIRECTED Care 06/09/19 17:43 Active Peripheral IV Insertion Adult [OM.PC] Stat Oth 06/09/19 17:43 Ordered Labs: Laboratory Tests 06/09/19 06/09/1906/09/20 Range/Units 17:54 17:54 17:54 WBC 10.41 H (3.98-10.04) K/mm3 RBC 5.00 (3.98-5.22) M/mm3 Hgb 15.3 (11.2-15.7) gm/dl Hct 45.1 H (34.1-44.9) % MCV 90.2 (79.4-94.8) fl MCH 30.6 (25.6-32.2) pg MCHC 33.9 (32.2-35.5) g/dl RDW Std Deviation 42.3 (36.4-46.3) fL Plt Count 378 H (182-369) K/mm3 MPV 8.9 L (9.4-12.3) fl Neut % (Auto) 53.4 (34.0-71.1) % Lymph % (Auto) 36.3 (19.3-51.7) % [place] % (Auto) 7.9 (4.7-12.5) % Eos % (Auto) 1.6 (0.7-5.8) Baso % (Auto) 0.6 (0.1-1.2) % Neut # (Auto) 5.56 (1.56-6.13) K/mm3 Lymph # (Auto) 3.78 H (1.18-3.74) K/mm3 [place] # (Auto) 0.82 H (0.24-0.36) K/mm3 Eos # (Auto) 0.17 (0.04-0.36) K/mm3 Baso # (Auto) 0.06 (0.01-0.08) K/mm3 Manual Slide Review Normal smear Sodium 140 (136-145) mEq/L Potassium 3.4 L (3.5-5.1) mEq/L Chloride 105 (98-107) mEq/L Carbon Dioxide 23 (21-32) mEq/L Anion Gap 15.4 H (5-15) BUN 13 (7-18) mg/dL Creatinine 0.9 (0.55-1.02) mg/dL Est Cr Clr Drug Dosing 54.91 mL/min Estimated GFR (MDRD) > 60 (>60) mL/min BUN/Creatinine Ratio 14.4 (14-18) Glucose 108 H (74-106) mg/dL Calcium 8.9 (8.5-10.1) mg/dL Total Bilirubin 0.2 (0.2-1.0) mg/dL AST 14 L (15-37) U/L ALT 29 (14-59) U/L Alkaline Phosphatase 83 (46-116) U/L Troponin I < 0.017 (0.00-0.056) ng/mL Total Protein 7.3 (6.4-8.2) g/dl Albumin 3.5 (3.4-5.0) g/dl Globulin 3.8 gm/dL Albumin/Globulin Ratio 0.9 L (1-2) HCG, Qual Negative (NEGATIVE) Meds: Medications Discontinued Medications Generic Name Dose Route Start Last Admin Trade Name Freq PRN Reason Stop Dose Admin Famotidine 20 mg 06/09/19 20:13 06/09/19 20:18 Pepcid PO 06/09/19 20:14 20 mg ONETIME ONE Administration Sodium Chloride 10 ml 06/09/19 17:43 06/09/19 19:36 Saline Flush FLUSH 10 ml ASDIRECTED PRN Administration Keep Vein Open - Re-Assessments/Exams Free Text/Narrative Re-Assessment/Exam: 06/09/19 20:22 CXR, trop, other labs normal. Has been in NSR, no ectopy, sats 99 to 100 %. She does give hx of burning, sx suggestive for GERD. Discharge instr. as documented. Departure - Departure Time of Disposition: 20:24 Disposition: Home, Self-Care 01 Condition: Fair Clinical Impression: Atypical chest pain GERD (gastroesophageal reflux disease) Qualifiers: Esophagitis presence: without esophagitis Qualified Code(s): K21.9 - Gastro- esophageal reflux disease without esophagitis Instructions: Nonspecific Chest Pain, [id number], Gastroesophageal Reflux Disease, Adult, [id number] Referrals: PCP,Unknown [Ordering Only Provider] - Forms: ED Department Discharge Additional Instructions: Continue current medications, consider starting daily antacid medication such as pepcid or prilosec available OTC or your regular medical provider can get you back on medication for your stomach. Liquid antacid or Tums 2 to 3 times daily if needed for heartburn type symptoms. Follow up with your regular medical provider as needed. Return to ED as needed if symptoms worsening in any way. Sepsis Event Note - Focused Exam Date Exam was Performed: 06/10/19 Time Exam was Performed: 10:50 - My Orders Last 24 Hours: My Active Orders 06/09/19 17:43 EKG 12 Lead [EKG Documentation Completion] [RC] STAT Peripheral IV Care [RC] . DIRECTED Peripheral IV Insertion Adult [OM.PC] Stat - Assessment/Plan Last 24 Hours: My Active Orders 06/09/19 17:43 EKG 12 Lead [EKG Documentation Completion] [RC] STAT Peripheral IV Care [RC] . DIRECTED Peripheral IV Insertion Adult [OM.PC] Stat
[2019-06-09 17:49] VITALS: BP 101/69; PULSE 79
[2019-06-09] MEDS ORDERED: Famotidine 20 MG Tab PO ONE (20:13)
--- NOTE | 2019-06-10 06:49 | CR ---
Chest: Portable view of the chest was obtained. Comparison: Prior chest x-ray of 04/07/19. Heart size and mediastinum are normal. Lungs are clear. AICD is noted. Previous sternotomy is noted. Bony structures are grossly intact. Impression: 1. Findings as noted above. 2. Nothing acute is appreciated on portable chest x-ray. Diagnostic code #2 This report was dictated in [place] Standard Time
== END 2019-06-09 20:35 | disposition home or self-care (01) ==
LOC: JD.ED 17:39
DX: K21.9 Gastro-esophageal reflux disease without esophagitis (principal); I11.0 Hypertensive heart disease with heart failure; I50.9 Heart failure, unspecified; I25.2 Old myocardial infarction; Z91.040 Latex allergy status; Z91.048 Other nonmedicinal substance allergy status; Z79.899 Other long term (current) drug therapy; Z79.82 Long term (current) use of aspirin; Z88.8 Allergy status to other drugs, medicaments and biological substances
CPT/HCPCS: 36415; 71045; 80053; 84484; 84703; 85025; 93005; 99285; A9270; 93010; 99283

== ENCOUNTER 2020-02-28 15:52 | Emergency (ER) | payer MEDICAID, OTHER ==
[2020-02-28 16:21] VITALS: BP 104/66; PULSE 93
--- NOTE | 2020-02-28 17:17 | EDM.PDOC ---
ED HPI GENERAL MEDICAL PROBLEM - General Chief Complaint: Respiratory Problem Stated Complaint: HEADACHE/SORE THROAT/DIZZY Time Seen by Provider: 02/28/20 16:43 Source of Information: Reports: Patient, RN Notes Reviewed History Limitations: Reports: No Limitations - History of Present Illness INITIAL COMMENTS - FREE TEXT/NARRATIVE: Patient is a 49-year-old female who presents to the ED for the evaluation of her multiple issues. Patient notes that she has been around someone that tested positive for COVID-19 last week, she states for the last month however she has had a dry intermittent cough, but has seemed to worsen over the last week, along with head congestion, nasal congestion, sore throat, patient states he is also been fairly dizzy. She has not had any fevers or chills, nausea or vomiting or diarrhea. She states that the dizziness is more of a world spinning dizziness, and not dizziness from sitting to standing. Blood pressure at time of triage was 104/66. She also noticed that she is having some intermittent abdomen pain, but she has had gastritis in the past, and believes that she is suffering from gas pains. She has not had any dark tarry stools, or any other sort of worrisome GI symptoms. Head Pain Score (Numeric/FACES): 5 - Related Data Allergies Allergy/AdvReac Type Severity Reaction Status Date / Time Penicillins Allergy Severe Swelling Verified 02/28/20 16:21 cat dander Allergy Shortness Verified 02/28/20 16:21 of Breath dog dander Allergy Shortness Verified 02/28/20 16:21 of Breath grass pollen Allergy Cannot Verified 02/28/20 16:21 Remember latex Allergy Itching Verified 02/28/20 16:21 tree and shrub pollen Allergy Cannot Verified 02/28/20 16:21 Remember Home Meds: Home Meds Lisinopril 2.5 mg PO DAILY #90 tablet 05/21/15 [Rx] Aspirin [Halfprin] 81 mg PO DAILY 04/15/17 [History] Metoclopramide [Reglan] 5 mg PO DAILY PRN 04/15/17 [History] Spironolactone [Aldactone] 12.5 mg PO DAILY 04/15/17 [History] Rosuvastatin [Crestor] 20 mg PO BEDTIME 03/20/18 [History] Solifenacin [Vesicare] 5 mg PO DAILY 03/20/18 [History] buPROPion HCL [Wellbutrin Xl] 150 mg PO DAILY 03/20/18 [History] Albuterol [Proventil HFA] 1 puff INH ASDIRECTED 11/04/18 [History] Albuterol [Proventil Neb Soln] 1 dose NEB DAILY PRN 06/09/19 [History] Past Medical History HEENT History: Reports: Allergic Rhinitis Other HEENT History: eustachian tube dysfunction Cardiovascular History: Reports: CAD, Heart Failure, High Cholesterol, Hypertension, [place], Stents Other Cardiovascular History: Double bypass Respiratory History: Reports: Asthma Gastrointestinal History: Reports: Gastritis, GERD, Hemorrhoids Other Gastrointestinal History: RECTAL BLEEDING from hemorrhoids Genitourinary History: Reports: Renal Calculus, Urinary Incontinence Other Genitourinary History: hematuria, labial cyst, vaginal cyst, dysuria, trichamoniasis 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: , 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: HX OF X4, 2 VAGINAL BIRTHS, 2 MISSED SAB Musculoskeletal History: Reports: Fracture Other Musculoskeletal History: bilateral achilles tendon contracture, bilateral carpal tunnel, fibrosis of subtabular joint, R ankle sprain, cervix stenosis, R trapezius muscle, body aches, R distal radius fracture, R epicondylitis, rhabdomylosis Neurological History: Reports: Vertigo, Other (See Below) Other Neuro History: dizziness, fatigue Psychiatric History: Reports: Depression Endocrine/Metabolic History: Reports: Obesity/BMI 30+ Hematologic History: Reports: Blood Transfusion(s) Oncologic (Cancer) History: Reports: Cervix - Infectious Disease History Infectious Disease History: Reports: Chicken Pox, Other (See Below) Other Infectious Disease History: STD's--not sure which one. - Past Surgical History HEENT Surgical History: Reports: Oral Surgery Cardiovascular Surgical History: Reports: AICD, Coronary Artery Bypass, Coronary Artery Stent Musculoskeletal Surgical History: Reports: Carpal Tunnel Social & Family History - Family History HEENT: Reports: Cataract Cardiac: Reports: [place] Respiratory: Reports: Asthma : Reports: Renal Calculus OBGYN: Reports: , Other (See Below) Other OBGYN Family History: miscarriages Musculoskeletal: Reports: Back pain, Chronic Neurological: Reports: Migraines, Seizure Psychiatric: Reports: Anxiety, Depression, Schizophrenia Endocrine/Metabolic: Reports: Diabetes, Type I, Diabetes, type II, Other (See Below) Other Endocrine/Metabolic Family History: thyroid issues but unsure of what type Oncologic: Reports: Colon - Tobacco Use Smoking Status *Q: Former Smoker Used Tobacco, but Quit: Yes Month/Year Tobacco Last Used: 2018 - Caffeine Use Caffeine Use: Reports: Coffee - Recreational Drug Use Recreational Drug Use: No - Living Situation & Occupation Living situation: Reports: Single, with Family (Son), Other (Roommates) Occupation: Employed ([employer], [employer]) ED ROS GENERAL - Review of Systems Review Of Systems: Comprehensive ROS is negative, except as noted in HPI. ED EXAM, GENERAL - Physical Exam Exam: See Below Exam Limited By: No Limitations General Appearance: Alert, WD/WN, No Apparent Distress Eye Exam: Right Eye: Nystagmus (several tics of rightward horizontal nystagmus), Bilateral Eye: EOMI, PERRL Ears: Normal External Exam, Normal Canal, Hearing Grossly Normal, Normal TMs Throat/Mouth: Normal Inspection, Normal Lips, Normal Teeth, Normal Gums, Normal Oropharynx, Normal Voice, No Airway Compromise Head: Atraumatic, Normocephalic Respiratory/Chest: No Respiratory Distress, Lungs Clear, Normal Breath Sounds, No Accessory Muscle Use, Chest Non-Tender Cardiovascular: Normal Peripheral Pulses, Regular Rate, Rhythm, No Murmur Extremities: Normal Inspection, Normal Capillary Refill Neurological: Alert, Oriented, Normal Cognition, No Motor/Sensory Deficits Psychiatric: Normal Affect, Normal Mood Skin Exam: Warm, Dry, Intact, Normal Color, No Rash Course - Vital Signs Last Recorded V/S: Last Vital Signs Temp 97.1 F 02/28/20 16:16 Pulse 93 02/28/20 16:16 Resp 20 02/28/20 16:16 BP 104/66 02/28/20 16:16 Pulse Ox 96 02/28/20 16:16 - Orders/Labs/Meds Orders: Active Orders 24 hr Category Date Time Status CORONAVIRUS COVID-19 PCR [facility] Stat Lab 02/28/20 17:44 Ordered Meds: Medications Discontinued Medications Generic Name Dose Route Start Last Admin Trade Name Freq PRN Reason Stop Dose Admin Meclizine HCl 25 mg 02/28/20 17:12 02/28/20 17:21 Antivert PO 02/28/20 17:13 25 mg ONETIME ONE Administration - Re-Assessments/Exams Free Text/Narrative Re-Assessment/Exam: 02/28/20 17:19 Patient presents to the ED for evaluation of her multiple symptoms. She does have quite a few symptoms of the coronavirus, she will have a state lab test be taking and sent out. I will treat her with 25 mg oral meclizine for suspected vertigo, patient will be reassessed after medicine has been given time to work. 02/28/20 18:02 Patient reports some relief of symptoms with the meclizine. She will be discharged home at this time with general recommendations. Departure - Departure Time of Disposition: 18:02 Disposition: Home, Self-Care 01 Condition: Good Clinical Impression: Vertigo, Suspected 2019 novel coronavirus infection - Discharge Information *PRESCRIPTION DRUG MONITORING PROGRAM REVIEWED*: No *COPY OF PRESCRIPTION DRUG MONITORING REPORT IN PATIENT HANK: No Instructions: How to Perform the Ike Maneuver Referrals: Bryson Traore MD [Primary Care Provider] - Forms: ED Department Discharge, ED Return to Work/School Form Additional Instructions: You were seen in the ER today for ongoing and/or worsening respiratory symptoms and dizziness. Your oxygen levels were great at 98% on room air. At this time we did test you for COVID-19. We ask that you self-quarantine and limit your exposure to others until you receive your results from the state. You have been given a work note to reflect this. Swabs are sent from this facility on a daily basis, at 2:30 PM, you should expect up to 3-5 business days for positive or negative results. However you may receive results earlier than this. We are doing our best to call as soon as we get results from the [place] dept. of Health. Please try to increase your oral fluid intake, and eat multiple small meals throughout the day, to keep yourself healthy. You need to keep yourself nourished in order to fight off this disease. You can try a liquid diet like gatorade/powerade as well to get your electrolytes. You may take 500 mg Tylenol every hours 6 hours for pain/fever relief. Do not exceed 4000 mg Tylenol in a 24-hour time span. However, running a fever is your body's natural response to illness, and it allows the body to develop antibodies to disease, we are recommending trying to limit the use of Tylenol as much as possible to allow your body's natural immune response. Recommend you obtain a pulse oximeter and monitor your oxygen levels at home, you should place the monitor on your finger, and sit in a calm, quiet position for a few minutes and then record the number that is on the screen. If this consistently below 90% on room air without movement, this would be cause for concern to come back to the hospital for further management of your COVID-19 disease. You may also use meclizine, this is an [id number] medication, 25 mg every 4 hours as needed for further symptomatic relief from your vertigo. It is also commonly marketed as Antivert or Bonine. You may find this in any retail space, near the [email or web address] or motion sickness medicine. If this does not seem to be providing you good results within the next day or 2, I recommend you follow-up with your regular care provider for possible referral to physical therapy for further management. Sepsis Event Note (ED) - Evaluation Sepsis Screening Result: No Definite Risk - Focused Exam Vital Signs: Vital Signs Temp Pulse Resp BP Pulse Ox 02/28/20 16:16 97.1 F 93 20 104/66 96 - My Orders Last 24 Hours: My Active Orders 02/28/20 17:44 CORONAVIRUS COVID-19 PCR [facility] Stat - Assessment/Plan Last 24 Hours: My Active Orders 02/28/20 17:44 CORONAVIRUS COVID-19 PCR [facility] Stat
== END 2020-02-28 18:59 | disposition home or self-care (01) ==
LOC: JD.ED 15:52
DX: R42 Dizziness and giddiness (principal); Z20.828 Contact with and (suspected) exposure to other viral communicable diseases; R10.9 Unspecified abdominal pain; R51.9 Headache, unspecified; I11.0 Hypertensive heart disease with heart failure; I50.9 Heart failure, unspecified; E78.00 Pure hypercholesterolemia, unspecified; I25.2 Old myocardial infarction; I25.10 Atherosclerotic heart disease of native coronary artery without angina pectoris; F32.9 Major depressive disorder, single episode, unspecified; E66.9 Obesity, unspecified; J45.909 Unspecified asthma, uncomplicated; Z88.0 Allergy status to penicillin; Z91.09 Other allergy status, other than to drugs and biological substances; Z91.040 Latex allergy status; Z79.82 Long term (current) use of aspirin; Z79.899 Other long term (current) drug therapy; Z95.5 Presence of coronary angioplasty implant and graft; Z87.891 Personal history of nicotine dependence; Z68.33 Body mass index [BMI] 33.0-33.9, adult
CPT/HCPCS: 87635; 99284; A9270; 99283; U0002